=== PATIENT | female | born 1965 | race Caucasian/White ===

== ENCOUNTER → 2019-06-05 10:44 | Outpatient (BNVA) | payer MEDICARE, SELFPAY | PROVIDERS: Family Provider Family Medicine; PCP Family Medicine; Visit Provider Family Medicine | DX: B35.4 Tinea corporis (principal); E11.9 Type 2 diabetes mellitus without complications; Z79.4 Long term (current) use of insulin; K21.9 Gastro-esophageal reflux disease without esophagitis; R25.1 Tremor, unspecified; G56.02 Carpal tunnel syndrome, left upper limb; Z78.0 Asymptomatic menopausal state; R39.9 Unspecified symptoms and signs involving the genitourinary system; N39.0 Urinary tract infection, site not specified; Z12.31 Encounter for screening mammogram for malignant neoplasm of breast | CPT/HCPCS: 80053; 80061; 81003; 83036; 84443; 85025; 87077; 87086; 87186 ==

== ENCOUNTER 2019-06-19 09:35 | Emergency (ER) | payer MEDICARE, SELFPAY ==
[2019-06-19 09:36] VITALS: BP 173/127; PULSE 77; RESP 18; TEMP 36.5; O2SAT 96; BMI 47.5
--- NOTE | 2019-06-19 09:46 | W.ED.NAVMDI ---
HPI - Nausea/Vomiting/Diarrhea General: Chief complaint: Nausea/Vomiting/Diarrhea Stated complaint: N/V Time Seen by Provider: 06/19/19 09:43 Source: patient Mode of arrival: ambulatory Limitations: no limitations History of Present Illness: HPI Narrative: Patient comes in today with 3-day history of nausea vomiting and diarrhea with abdominal pain. Patient appears unwell. Patient appears in mild to no pain. Patient does have a history of diabetes, renal insufficiency, and depression. Associated nausea: Yes Associated symtoms: Reports nausea Review of Systems General: Reports: 10 or more systems reviewed and unremarkable except in HPI and below GI: Reports: abdominal pain, nausea, vomiting and diarrhea; Denies: vomiting blood or blood in stool PFSH ED PFSH: Social History Smoking and tobacco status: never smoked Alcohol intake: never Household members: spouse Housing: House Marital status: Number of children: 3 Highest education level completed: Associate Degree: Occupational, Technical, Vocational Program service: No Current occupational status: disabled History of recent travel: No Physical Exam Const: COMMON NORMALS: no apparent distress and oriented x3 GENERAL APPEARANCE: cooperative HENMT: COMMON NORMALS: normocephalic, external ears normal, EAC's normal, TM's normal bilaterally and external nose normal HEAD & SCALP: normal to inspection and normocephalic FACE & SINUS: normal facial exam NOSE: external nose normal GENERAL EAR: hearing not grossly impaired EXTERNAL EAR: Yes external ears normal EXTERNAL AUDITORY CANAL: EAC's normal TYMPANIC MEMBRANE: TM's normal bilaterally MOUTH: oral and palatal mucosa normal THROAT: posterior oropharynx normal Eye: COMMON NORMALS: PERRL and EOMs intact bilaterally PUPIL: Yes PERRL Neck/C-Spine: COMMON NORMALS: full ROM and no lymphadenopathy Lymph: LYMPHATIC: no lymphedema noted Chest: COMMONS NORMALS: inspection of chest normal and palpation of chest normal Resp: COMMON NORMALS: normal respiratory effort and clear to auscultation bilaterally AUSCULTATION: clear to auscultation bilaterally Cardio: COMMON NORMALS: regular rate and regular rhythm RATE: regular rate RHYTHM: regular rhythm GI: COMMON NORMALS: normal to inspection, nondistended, normoactive bowel sounds PALPATION: Yes tender : COMMON NORMALS: Yes no CVA tenderness BLADDER/KIDNEY EXAM: Yes no CVA tenderness Back/Pelvis: COMMON NORMALS: no CVA tenderness and thoracic and lumbar spine normal to inspection Extremity: COMMON NORMALS: normal to inspection GENERAL: No edema Neuro: COMMON NORMALS: oriented x3, moves all extremities and no focal motor deficits Psych: COMMON NORMALS: mental status grossly normal and cooperative Skin: COMMON NORMALS: no rashes or lesions noted GENERAL SKIN EXAM: no rashes or lesions noted Course Vital Signs: Vital signs: Vital Signs Temperature 97.7 F 06/19/19 09:36 Pulse Rate 74 06/19/19 11:13 Respiratory Rate 16 06/19/19 12:07 Blood Pressure 140/74 06/19/19 11:13 Pulse Oximetry 94 06/19/19 12:07 MDM - Nausea/Vomiting/Diarrhea MDM Narrative: Medical decision making narrative: Patient comes in today with complaints of Nausea vomiting diarrhea for 3 days. Exam notes abdomen soft nontender. Skin is warm and dry color is pink. Patient is alert and oriented. Differential diagnosis gastroenteritis, influenza, bowel obstruction, cholecystitis, pancreatitis, dehydration. Laboratory values were fairly normal except for some mild elevation in BUN at 21. Blood glucose was 183. CT scan of the abdomen and pelvis noted no significant abnormalities. Reviewed exam with patient with recommendations for treatment and follow-up. Patient reports understanding agreed to plan. Lab Data: Labs: Lab Results 06/19/19 06/19/19 06/19/19 Range/Units 10:05 10:05 10:42 WBC 9.3 (4.0-10.0) 10^3/ uL RBC 4.39 (4.1-5.3) 10^6/u L Hgb 12.0 (11.5-15.3) g/dL Hct 37.2 (37.0-47.0) % MCV 84.7 (81-99) fL MCH 27.3 L (28.0-34.0) pg MCHC 32.3 (30.0-36.0) g/dL RDW 12.7 (12.1-15.1) % Plt Count 213 (130-400) 10^3/c mm MPV 9.8 (7.4-10.4) fL Neut % (Auto) 82.1 % Lymph % (Auto) 12.5 % [place] % (Auto) 3.7 % Eos % (Auto) 0.6 % Baso % (Auto) 0.2 % Neut # (Auto) 7.6 (1.8-7.7) 10^3/u L Lymph # (Auto) 1.2 (0.8-4.8) 10^3/u L [place] # (Auto) 0.3 (0.2-0.9) 10^3/u L Eos # (Auto) 0.1 (0.0-0.8) 10^3/u L Baso # (Auto) 0.0 (0.0-0.1) 10^3/u L Nucleated RBC % (a uto) 0 % Nucleated RBCs # 0.0 /100WBC Sodium 136 (136-145) mmol/L Potassium 4.2 (3.5-5.1) mmol/L Chloride 100 (98-107) mmol/L Carbon Dioxide 23 (22-29) mmol/L Anion Gap 17.2 (5-19) BUN 21 H (6-20) mg/dL Creatinine 0.7 (0.5-0.9) mg/dL GFR Calculation 86.9 L (90-130) mL/min Glucose 181 H (65-115) mg/dL Calcium 9.8 (8.5-10.5) mg/dL Total Bilirubin 0.6 (0.15-1.2) mg/dL AST 16 (0-32) U/L ALT 15 (0-33) U/L Alkaline Phosphata se 83 (35-105) IU/L Total Protein 7.9 (6.6-8.7) g/dL Albumin 3.8 (3.5-5.2) g/dL Globulin 4.1 (1.3-4.6) g/dL Lipase 10 L (13-60) U/L Urine Color Straw (Yellow) Urine Appearance Clear (CLEAR) Urine pH 8.0 H (5-7) Ur Specific Gravit y 1.010 (1.005-1.030) Urine Protein Neg (Negative) Urine Glucose (UA) Norm (Normal) Urine Ketones 1+ H (Negative) Urine Blood Neg (Negative) Urine Nitrate Negative (Negative) Urine Bilirubin Neg (NEGATIVE) Prot Sulfosalicyli c Acd Negative Urine Urobilinogen Norm (Negative) mg/dL Ur Leukocyte Maricarmen ase Negative (Negative) Discharge Plan Discharge Patient Disposition: Home, Self-Care Clinical Impression: Gastroenteritis Condition: Stable Prescriptions: New promethazine 12.5 mg tablet 12.5 mg PO Q4H PRN (Reason: nausea and vomiting) Qty: 14 RF: 0 No Action clotrimazole-betamethasone [Lotrisone] 1-0.05 % cream 1 applic TOPICAL BID 28 Days Qty: 45 RF: 1 pantoprazole 40 mg tablet,delayed release (DR/EC) 40 mg PO DAILY Qty: 90 RF: 1 propranolol 10 mg tablet 10 mg PO BID Qty: 180 RF: 1 oxybutynin chloride 5 mg tablet 5 mg PO TID Qty: 270 RF: 1 sulfamethoxazole-trimethoprim [Bactrim DS] 800-160 mg tablet 1 tab PO BID Qty: 20 RF: 0 fluoxetine [Prozac] 40 mg capsule 40 mg PO QAM RF: 0 quetiapine [Seroquel] 50 mg tablet 50 mg PO .QHS RF: 0 ibuprofen 800 mg tablet 800 mg PO TID Qty: 30 RF: 0 (DME) True Metrix Glucose Test Strip Strip See Rx Instructions .ROUTE .MEDSUPPLY Qty: 100 RF: 3 baclofen 10 mg tablet 10 mg PO TID Qty: 90 RF: 0 Basaglar KwikPen U-100 Insulin 100 unit/mL (3 mL) insulin pen 70 unit SUBCUT DAILY Qty: 15 RF: 0 Discharge Orders: Discharge Order (Routine); Ordered 06/19/19 Ordered By: Scott Grullon Referrals: Magdalena Langston MD [Primary Care Provider] - Discharge Diet: Clear Liquid Discharge Activity: Increase activity as tolerated Patient Instructions: Gastroenteritis (ED) Activity Restrictions/Additional Instructions: Drink plenty of fluids Use Pedialyte or other electrolyte solution with water to maintain adequate hydration Follow-up with primary care in 3 days Return to ER for high fever or blood in stool or vomit, or new concerns Coding Level of Care Code 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
--- NOTE | 2019-06-19 09:54 | CTR_ITS ---
PROCEDURE INFORMATION: Exam: CT Abdomen And Pelvis With Contrast Exam date and time: 06/19/2019 10:02 AM Age: 53 years old Clinical indication: Nausea and vomiting; Abdominal pain; Generalized; Prior surgery; Surgery type: Gb; Patient HX: Mid abd pain with n/v/d. History of renal cancer. ; Additional info: Abd pain, n/v/d TECHNIQUE: Imaging protocol: Computed tomography of the abdomen and pelvis with intravenous contrast. Total DLP: 2061.71 mGy-cm Radiation optimization: All CT scans at this facility use at least one of these dose optimization techniques: automated exposure control; mA and/or kV adjustment per patient size (includes targeted exams where dose is matched to clinical indication); or iterative reconstruction. Contrast material: OMNI 300; Contrast volume: 95 ml; Contrast route: 20G; COMPARISON: CT abdomen pelvis wo con [id number] 10/05/2018 2:30 PM FINDINGS: Lungs: There are bibasilar calcified and noncalcified stable pulmonary granulomas. Liver: The liver is not enlarged. There is an ill-defined focus of diminished subcapsular attenuation in segment 3 adjacent to the fissure for the falciform ligament which can be due to focal fatty change or an area of anomalous perfusion. Gallbladder and bile ducts: Prior cholecystectomy. No biliary ductal dilatation allowing for that. Pancreas: No pancreatic mass. No peripancreatic inflammation. No pancreatic ductal dilation. Spleen: Multiple calcified granulomas in a nonenlarged spleen. Adrenals: There is a right adrenal mass measuring approximately 3.3 cm in size which has an ill-defined macroscopic fat attenuation component. This could be due to an adrenal adenoma or myelolipoma. The left adrenal gland is normal. Kidneys and ureters: No hydronephrosis. Punctate right renal calcification. Posterior right renal parenchymal scarring. Right renal simple appearing cysts measuring up to approximately 10 mm in size. Stomach and bowel: No bowel obstruction, colitis or diverticulitis. Appendix: No evidence of appendicitis. Intraperitoneal space: No ascites or pneumoperitoneum. Vasculature: No abdominal aortic aneurysm. No iliac or common femoral artery aneurysm. Lymph nodes: Scattered small mesenteric lymph nodes. Bladder: No urinary bladder calculus or wall thickening. Reproductive: Unremarkable as visualized. Bones/joints: There is disc degeneration with vacuum disc formation at L4-L5 and L5-S1. There is multilevel facet arthropathy in the lower lumbar spine. There is a grade 1 degenerative spondylolisthesis of L4 on L5. Multilevel bridging osteophytes present in the visualized thoracic spine. Soft tissues: There is a small umbilical hernia containing fat. CT/CT abdomen pelvis w con* [id number] IMPRESSION: No bowel obstruction, colitis or diverticulitis. COMMENTS: Consistent with the [employer]'s Incidental Findings Committee white paper (J Am Clarisa Radiol 2018): Any incidental cystic renal lesion classified in this report as too small to characterize or simple appearing is likely a benign cyst. No follow-up imaging is recommended for these lesions per consensus recommendations based on imaging criteria. Radiation Dose CTDIVOL = (mGy): DLP = 2061.71 (mGy-cm)
[2019-06-19 09:57] VITALS: PULSE 76; RESP 17; O2SAT 95
[2019-06-19 10:13] LABS: Basophils % 0.2 %; Eosinophils # 0.1 10^3/uL (0.0-0.8); Eosinophils % 0.6 %; Hematocrit 37.2 % (37.0-47.0); Lymphocytes # 1.2 10^3/uL (0.8-4.8); Lymphocytes % 12.5 %; Mean Corpuscular HGB Conc 32.3 g/dL (30.0-36.0); Mean Corpuscular Hemoglobin 27.3 pg (28.0-34.0); Mean Corpuscular Volume 84.7 fL (81-99); Mean Platelet Volume 9.8 fL (7.4-10.4); Monocytes # 0.3 10^3/uL (0.2-0.9); Monocytes % 3.7 %; Neutrophils # 7.6 10^3/uL (1.8-7.7); Neutrophils % 82.1 %; Nucleated Red Blood Cells % 0 %; Platelet Count 213 10^3/cmm (130-400); Red Blood Count 4.39 10^6/uL (4.1-5.3); Red Cell Distribution Width 12.7 % (12.1-15.1); White Blood Count 9.3 10^3/uL (4.0-10.0)
[2019-06-19] MEDS: iohexol 300 mg/mL 100 mL Btl IV (10:22)
[2019-06-19 10:27] LABS: Alanine Aminotransferase 15 U/L (0-33); Albumin Level 3.8 g/dL (3.5-5.2); Alkaline Phosphatase 83 IU/L (35-105); Anion Gap 17.2 (5-19); Aspartate Amino Transferase 16 U/L (0-32); Blood Urea Nitrogen 21 mg/dL (6-20); Calcium 9.8 mg/dL (8.5-10.5); Carbon Dioxide 23 mmol/L (22-29); Chloride 100 mmol/L (98-107); Globulin 4.1 g/dL (1.3-4.6); Glomerular Filtration Rate 86.9 mL/min (90-130); Glucose 181 mg/dL (65-115); Lipase 10 U/L (13-60); Potassium 4.2 mmol/L (3.5-5.1); Sodium 136 mmol/L (136-145); Total Bilirubin 0.6 mg/dL (0.15-1.2); Total Protein 7.9 g/dL (6.6-8.7)
[2019-06-19] MEDS: sodium chloride 0.9% 1,000 ML 999 ML IV (10:47)
[2019-06-19] MEDS: ondansetron 2 mg/ML SDV 2 mL 4 MG IVP ×2 (10:48→12:07)
[2019-06-19 10:53] LABS: Add Urine Microscopic? NO
[2019-06-19 11:10] LABS: Bilirubin Urine Neg (NEGATIVE); Blood Urine Neg (Negative); Glucose Urine UA Norm (Normal); Ketones Urine 1+ (Negative); Leukocyte Esterase Urine Negative (Negative); Nitrate Urine Negative (Negative); Protein Urine Neg (Negative); Sulfosalicylic Acid Urine Negative; Urine Appearance Clear (CLEAR); Urine Color Straw (Yellow); Urobilinogen Urine Norm (Negative)
[2019-06-19 11:13] VITALS: BP 140/74; PULSE 74; RESP 16; O2SAT 98
[2019-06-19 12:07] VITALS: RESP 16; O2SAT 94
[2019-06-19] MEDS: morphine 4 mg/mL SDV 1 mL 2 MG IVP (12:07)
[2019-06-19] MEDS: famotidine 20 mg/2 mL INJ 40 MG IVP (12:08)
[2019-06-19 12:31] LABS: Troponin(5th) Baseline 14 ng/mL (0-10)
[2019-06-19 12:40] VITALS: PULSE 78; RESP 16; O2SAT 94
--- NOTE | 2019-06-19 17:52 | ECG_ITS ---
Measurements Intervals [place] Rate: 71 P: 55 SC: 172 QRS: -20 QRSD: 153 T: -3 QT: 443 QTc: 482 SINUS RHYTHM RIGHT BUNDLE BRANCH BLOCK [120+ ms QRS DURATION, UPRIGHT V1, 40+ ms S IN I/aVL/V4/V5/V6] Compared to ECG 10/06/2018 06:09:45 No significant changes Electronically Signed On 06-20-2019 7:57:57 TREE TRIMMER by Nella Wood M.D. [email or web address]
== END 2019-06-19 12:41 | disposition home or self-care (01) ==
PROVIDERS: Emergency Provider Nurse Practitioner Family; Family Provider Family Medicine; PCP Family Medicine
DX: K52.9 Noninfective gastroenteritis and colitis, unspecified (principal); E11.9 Type 2 diabetes mellitus without complications
CPT/HCPCS: 36415; 74177; 80053; 81003; 83690; 84484; 85025; 93005; 96374; 96375; 96376; 99283; 99284; J2270; J2405; J3490; J7030; Q9967

== ENCOUNTER → 2019-07-09 15:01 | Outpatient (BNVA) | payer MEDICARE, SELFPAY | PROVIDERS: Family Provider Family Medicine; PCP Family Medicine; Visit Provider Family Medicine | DX: M77.32 Calcaneal spur, left foot (principal) | CPT/HCPCS: 73630 ==

== ENCOUNTER → 2019-07-16 08:26 | Outpatient (BNVA) | payer MEDICARE, SELFPAY | PROVIDERS: Family Provider Family Medicine; PCP Family Medicine; Visit Provider Nurse Practitioner Psychiatric/Mental Health | DX: F33.2 Major depressive disorder, recurrent severe without psychotic features (principal); F41.1 Generalized anxiety disorder | CPT/HCPCS: 99214 ==

== ENCOUNTER → 2019-09-24 07:58 | Outpatient (BNVA) | payer MEDICARE, SELFPAY | PROVIDERS: Family Provider Family Medicine; PCP Family Medicine; Visit Provider Anesthesiology | DX: G89.29 Other chronic pain (principal); M54.16 Radiculopathy, lumbar region; M54.9 Dorsalgia, unspecified; M79.672 Pain in left foot; Z79.891 Long term (current) use of opiate analgesic | CPT/HCPCS: 99213; 99214 ==

== ENCOUNTER 2019-09-28 16:03 | Outpatient (CLI) | payer MEDICARE, SELFPAY | END 2019-09-28 16:04 | disposition home or self-care (01) | LOC: SPT 16:03 | PROVIDERS: Family Provider Family Medicine; PCP Family Medicine; Visit Provider Podiatrist Foot & Ankle Surgery | DX: Z46.89 Encounter for fitting and adjustment of other specified devices (principal); M76.72 Peroneal tendinitis, left leg | CPT/HCPCS: 97760; L4361 ==

== ENCOUNTER → 2019-10-06 07:39 | Outpatient (BNVA) | payer MEDICARE, SELFPAY | PROVIDERS: Family Provider Family Medicine; PCP Family Medicine; Visit Provider Nurse Practitioner Psychiatric/Mental Health | DX: F33.2 Major depressive disorder, recurrent severe without psychotic features (principal); F41.1 Generalized anxiety disorder | CPT/HCPCS: 99214 ==

== ENCOUNTER 2019-10-12 16:17 | Outpatient (CLI) | payer MEDICARE, SELFPAY | END 2019-10-12 16:18 | disposition home or self-care (01) | LOC: SPT 16:18 | PROVIDERS: Family Provider Family Medicine; PCP Family Medicine; Visit Provider Podiatrist Foot & Ankle Surgery | DX: M76.72 Peroneal tendinitis, left leg (principal) | CPT/HCPCS: 97760; L1902 ==

== ENCOUNTER → 2019-10-13 10:29 | Outpatient (BNVA) | payer MEDICARE, SELFPAY | PROVIDERS: Family Provider Family Medicine; PCP Family Medicine; Visit Provider Family Medicine | DX: R32 Unspecified urinary incontinence (principal); E11.42 Type 2 diabetes mellitus with diabetic polyneuropathy; B37.9 Candidiasis, unspecified; R21 Rash and other nonspecific skin eruption; F41.1 Generalized anxiety disorder | CPT/HCPCS: 80053; 83036; 84443 ==

== ENCOUNTER → 2019-12-29 08:16 | Outpatient (BNVA) | payer MEDICARE, SELFPAY | PROVIDERS: Family Provider Family Medicine; PCP Family Medicine; Visit Provider Nurse Practitioner Psychiatric/Mental Health | DX: F33.2 Major depressive disorder, recurrent severe without psychotic features (principal); F41.1 Generalized anxiety disorder | CPT/HCPCS: 99213 ==

== ENCOUNTER → 2020-01-21 10:00 | Outpatient (BNVA) | payer MEDICARE, SELFPAY | PROVIDERS: Family Provider Family Medicine; PCP Family Medicine; Visit Provider Family Medicine | DX: E11.9 Type 2 diabetes mellitus without complications (principal); I10 Essential (primary) hypertension | CPT/HCPCS: 80053; 80061; 83036; 84443; 85025 ==

== ENCOUNTER → 2020-03-09 09:00 | Outpatient (BNVA) | payer MEDICARE, SELFPAY | PROVIDERS: Family Provider Family Medicine; PCP Family Medicine; Visit Provider Family Medicine | DX: N30.00 Acute cystitis without hematuria (principal); E66.9 Obesity, unspecified | CPT/HCPCS: 81003; 87077; 87086; 87184 ==

== ENCOUNTER → 2020-03-22 07:40 | Outpatient (BNVA) | payer MEDICARE, SELFPAY | PROVIDERS: Family Provider Family Medicine; PCP Family Medicine; Visit Provider Nurse Practitioner Psychiatric/Mental Health | DX: F33.2 Major depressive disorder, recurrent severe without psychotic features (principal); F41.1 Generalized anxiety disorder | CPT/HCPCS: 99213 ==

== ENCOUNTER → 2020-04-11 11:07 | Outpatient (BNVA) | payer MEDICARE, SELFPAY | PROVIDERS: Family Provider Family Medicine; PCP Family Medicine; Visit Provider Family Medicine | DX: N39.0 Urinary tract infection, site not specified (principal) | CPT/HCPCS: 81000 ==

== ENCOUNTER → 2020-05-31 09:02 | Outpatient (BNVA) | payer MEDICARE, SELFPAY | PROVIDERS: Family Provider Family Medicine; PCP Family Medicine; Visit Provider Internal Medicine | DX: E11.42 Type 2 diabetes mellitus with diabetic polyneuropathy (principal); E11.649 Type 2 diabetes mellitus with hypoglycemia without coma; Z79.4 Long term (current) use of insulin; Z79.891 Long term (current) use of opiate analgesic | CPT/HCPCS: 99205 ==

== ENCOUNTER → 2020-08-23 13:29 | Outpatient (BNVA) | payer MEDICARE, SELFPAY | PROVIDERS: Family Provider Family Medicine; PCP Family Medicine; Visit Provider Family Medicine | DX: E11.42 Type 2 diabetes mellitus with diabetic polyneuropathy (principal); K21.9 Gastro-esophageal reflux disease without esophagitis; E78.2 Mixed hyperlipidemia; I10 Essential (primary) hypertension; Z79.4 Long term (current) use of insulin; E66.9 Obesity, unspecified | CPT/HCPCS: 80053; 80061; 83036; 84443; 85025 ==

== ENCOUNTER → 2020-09-02 09:25 | Outpatient (BNVA) | payer MEDICARE, SELFPAY | PROVIDERS: Family Provider Family Medicine; PCP Family Medicine; Visit Provider Nurse Practitioner Psychiatric/Mental Health | DX: F33.2 Major depressive disorder, recurrent severe without psychotic features (principal); F41.1 Generalized anxiety disorder | CPT/HCPCS: 99214 ==

== ENCOUNTER → 2020-09-21 07:58 | Outpatient (BNVA) | payer MEDICARE, SELFPAY | PROVIDERS: Family Provider Family Medicine; PCP Family Medicine; Visit Provider Nurse Practitioner Psychiatric/Mental Health | DX: F33.2 Major depressive disorder, recurrent severe without psychotic features (principal); F41.1 Generalized anxiety disorder | CPT/HCPCS: 99214 ==

== ENCOUNTER → 2020-09-23 09:32 | Outpatient (BNVA) | payer MEDICARE, SELFPAY | PROVIDERS: Family Provider Family Medicine; PCP Family Medicine; Visit Provider Family Medicine | DX: N30.00 Acute cystitis without hematuria (principal); N39.0 Urinary tract infection, site not specified; R74.8 Abnormal levels of other serum enzymes | CPT/HCPCS: 80076; 81003; 87077; 87086; 87184 ==

== ENCOUNTER → 2020-10-10 07:50 | Outpatient (BNVA) | payer MEDICARE, SELFPAY | PROVIDERS: Family Provider Family Medicine; PCP Family Medicine; Visit Provider Nurse Practitioner Psychiatric/Mental Health | DX: F33.2 Major depressive disorder, recurrent severe without psychotic features (principal); F41.1 Generalized anxiety disorder | CPT/HCPCS: 99214 ==

== ENCOUNTER 2020-10-10 15:58 | Emergency (ER) | payer MEDICARE, SELFPAY ==
[2020-10-10 17:16] VITALS: BP 143/83; PULSE 65; RESP 18; TEMP 36.3; O2SAT 95; BMI 48.2
--- NOTE | 2020-10-10 17:40 | ED_ITS ---
Documented by User: Remigio Boles DO 10/11/20 06:45 HPI - Psych General: Chief Complaint: Urogenital-Female Stated Complaint: POSS UTI & DEHYDRATION Time Seen by Provider: 10/10/20 17:14 History of Present Illness: HPI Narrative: 55-year-old female presents to the emergency room [facility] evidently called ahead of time monitor his notes and nurses triage that she was hallucinating however she denies it in talking to her and her and think the bigger issue is they thought the medicine she was taking could cause hallucinations she denies any suicidal or homicidal ideation. She not had any fever sweats or chills she recently was started on antibiotic for UTI but did not come needed. Onset (ago): minute(s) Relieving factors: none Exacerbating factors: none Associated symptoms: Deny auditory hallucinations, visual hallucinations, delusions, depression, homicidal ideation, suicidal ideation or racing thoughts Review of Systems Const: Denies: fever(s), chills, body aches, change in appetite, fatigue or malaise ENMT: Denies: throat pain, ear or mastoid pain, nasal discharge or nasal congestion Card: Denies: chest pain, edema, dyspnea on exertion or orthopnea Resp: Denies: dyspnea, productive cough or non-productive cough GI: Reports: nausea; Denies: abdominal pain, vomiting, hematemesis, coffee ground emesis, diarrhea, constipation, bloating, hematochezia or melena : Denies: flank pain, difficulty voiding, dysuria, urinary frequency or urinary urgency Skin/Breast: Denies: rash or pruritus Psych: Denies: depression, visual hallucinations, auditory hallucinations, suicidal ideation or homicidal ideation [facility] ED PFSH: Medical History Anemia Chronic radicular lumbar pain Diabetes Encounter for long-term opiate analgesic use Generalized anxiety disorder Major depressive disorder, recurrent severe without psychotic features Primary fibromyalgia Type 2 diabetes mellitus, with long-term current use of insulin Surgical History Hx of adenoidectomy Hx of carpal tunnel repair (~1996) Hx of cholecystectomy (~1986) Hx of colonoscopy (~2019) Hx of endoscopy (~2019) Family History Mother Hypertension Rheumatoid arthritis Grandmother Diabetes Arthritis Stroke Hypertension Social History Smoking and tobacco status: never smoked Alcohol intake: never Household members: spouse Marital status: Current occupational status: disabled History of recent travel: No Physical Exam Const: COMMON NORMALS: no acute distress GENERAL APPEARANCE: cooperative and comfortable ORIENTATION/CONSCIOUSNESS: Yes awake, Yes oriented to person, Yes oriented to place and Yes oriented to time HENMT: COMMON NORMALS: normocephalic, atraumatic, hearing grossly normal bilaterally, external ears normal, EAC's normal and TM's normal bilaterally HEAD & SCALP: normocephalic and atraumatic EXTERNAL EAR: Yes external ears normal EXTERNAL AUDITORY CANAL: EAC's normal TYMPANIC MEMBRANE: TM's normal bilaterally Neck/C-Spine: COMMON NORMALS: no JVD Resp: COMMON NORMALS: normal respiratory effort, No retractions, No use of accessory muscles and clear to auscultation bilaterally AUSCULTATION: clear to auscultation bilaterally Cardio: COMMON NORMALS: no JVD, regular rate, regular rhythm and No murmurs present (Cardio) RATE: regular rate RHYTHM: regular rhythm GI: COMMON NORMALS: Soft to palpation and No hepatosplenomegaly present AUSCULTATION: Yes normoactive bowel sounds PALPATION: Yes Soft to palpation, No Tenderness to palpation present (GI), No Guarding due to palpation present (GI) and Yes No hepatosplenomegaly present Extremity: COMMON NORMALS: normal to inspection, capillary refill normal, no clubbing, cyanosis or edema, no calf tenderness and no pedal edema Neuro: SENSORIUM/ORIENTATION: Yes oriented to person, Yes oriented to place and Yes oriented to time Psych: THOUGHT CONTENT: No delusions Skin: COMMON NORMALS: no rashes or lesions noted GENERAL SKIN EXAM: no rashes or lesions noted Course Vital Signs: Vital signs: Vital Signs Temperature 97.3 F L 10/10/20 17:16 Pulse Rate 72 10/10/20 19:31 Respiratory Rate 18 10/10/20 19:31 Blood Pressure 121/66 10/10/20 19:31 Pulse Oximetry 97 10/10/20 19:31 MDM - Psych MDM Narrative: Medical decision making narrative: Patient initially seen by myself. Orders written discussed with Dr. Guerra care turned over Dr. Guerra at change of shift see his notes for final diagnosis and disposition. Lab Data: Labs: Lab Results 10/10/20 10/10/20 10/10/20 Range/Units 17:42 17:52 17:52 WBC 7.8 (4.0-10.0) 10^3/ uL RBC 3.98 L (4.1-5.3) 10^6/u L Hgb 11.8 (11.5-15.3) g/dL Hct 36.0 L (37.0-47.0) % MCV 90.5 (81-99) fL MCH 29.6 (28.0-34.0) pg MCHC 32.8 (30.0-36.0) g/dL RDW 12.8 (12.1-15.1) % Plt Count 174 (130-400) 10^3/c mm MPV 10.1 (7.4-10.4) fL Neut % (Auto) 67.7 % Lymph % (Auto) 23.4 % [place] % (Auto) 6.1 % Eos % (Auto) 1.8 % Baso % (Auto) 0.5 % Neut # (Auto) 5.30 (1.8-7.7) 10^3/u L Lymph # (Auto) 1.8 (0.8-4.8) 10^3/u L [place] # (Auto) 0.5 (0.2-0.9) 10^3/u L Eos # (Auto) 0.1 (0.0-0.8) 10^3/u L Baso # (Auto) 0.0 (0.0-0.1) 10^3/u L Nucleated RBC % (a uto) 0 % Nucleated RBCs # 0.0 /100WBC Sodium Cancelled Potassium Cancelled Chloride Cancelled Carbon Dioxide Cancelled Anion Gap Cancelled BUN Cancelled Creatinine Cancelled GFR Calculation Cancelled Glucose Cancelled Calculated Osmolal ity Cancelled Calcium Cancelled Total Bilirubin Cancelled AST Cancelled ALT Cancelled Alkaline Phosphata se Cancelled Total Protein Cancelled Albumin Cancelled Globulin Cancelled Urine Color Yellow (Yellow) Urine Appearance Clear (CLEAR) Urine pH 8 H (5-7) Ur Specific Gravit y 1.010 (1.005-1.030) Urine Protein Neg (Negative) Urine Glucose (UA) Norm (Normal) Urine Ketones Negative (Negative) Urine Blood Neg (Negative) Urine Nitrate Negative (Negative) Urine Bilirubin Neg (Negative) Prot Sulfosalicyli c Acd Negative (Negative) Urine Urobilinogen 4 H (Negative) mg/dL Ur Leukocyte Maricarmen ase Negative (Negative) Salicylates Cancelled Acetaminophen Cancelled 10/10/20 Range/Units 18:36 WBC (4.0-10.0) 10^3/ uL RBC (4.1-5.3) 10^6/u L Hgb (11.5-15.3) g/dL Hct (37.0-47.0) % MCV (81-99) fL MCH (28.0-34.0) pg MCHC (30.0-36.0) g/dL RDW (12.1-15.1) % Plt Count (130-400) 10^3/c mm MPV (7.4-10.4) fL Neut % (Auto) % Lymph % (Auto) % [place] % (Auto) % Eos % (Auto) % Baso % (Auto) % Neut # (Auto) (1.8-7.7) 10^3/u L Lymph # (Auto) (0.8-4.8) 10^3/u L [place] # (Auto) (0.2-0.9) 10^3/u L Eos # (Auto) (0.0-0.8) 10^3/u L Baso # (Auto) (0.0-0.1) 10^3/u L Nucleated RBC % (a uto) % Nucleated RBCs # /100WBC Sodium 138 Potassium 4.1 Chloride 105 Carbon Dioxide 27 Anion Gap 10.1 BUN 12 Creatinine 0.6 GFR Calculation 103.0 Glucose 138 H Calculated Osmolal ity 288 Calcium 8.2 L Total Bilirubin 0.8 AST 95 H ALT 104 H Alkaline Phosphata se 139 H Total Protein 5.8 L Albumin 3.2 L Globulin 2.6 Urine Color (Yellow) Urine Appearance (CLEAR) Urine pH (5-7) Ur Specific Gravit y (1.005-1.030) Urine Protein (Negative) Urine Glucose (UA) (Normal) Urine Ketones (Negative) Urine Blood (Negative) Urine Nitrate (Negative) Urine Bilirubin (Negative) Prot Sulfosalicyli c Acd (Negative) Urine Urobilinogen (Negative) mg/dL Ur Leukocyte Maricarmen ase (Negative) Salicylates < 0.3 L Acetaminophen < 5.0 L Discharge Plan Discharge Patient Disposition: Home Clinical Impression: Dysuria, Nausea Condition: Stable Prescriptions: New promethazine 25 mg tablet 25 mg PO Q6H PRN (Reason: nausea and vomiting) Qty: 20 RF: 0 No Action metoclopramide HCl [Reglan] 10 mg tablet 10 mg PO Q6H PRN (Reason: nausea and vomiting) Qty: 30 RF: 3 calcium carbonate 600 mg calcium (1,500 mg) tablet 600 mg PO BID RF: 0 fluoxetine 40 mg capsule 40 mg PO QAM Qty: 30 RF: 1 aspirin 325 mg tablet,delayed release (DR/EC) 162.5 mg PO DAILY RF: 0 magnesium oxide 500 mg capsule 500 mg PO BID RF: 0 multivitamin Tablet 1 tab PO QAM RF: 0 ascorbate calcium (vitamin C) 500 mg tablet 500 mg PO DAILY RF: 0 ferrous sulfate [FeroSul] 325 mg (65 mg iron) tablet 650 mg PO BID RF: 0 potassium gluconate 595 mg (99 mg) tablet 99 mg PO DAILY RF: 0 (DME) Diabetic shoes with inserts See Rx Instructions .Route .MEDSUPPLY Qty: 1 RF: 0 (DME) blood sugar diagnostic Strip See Rx Instructions .ROUTE .MEDSUPPLY Qty: 10 RF: 0 cholecalciferol (vitamin D3) 25 mcg (1,000 unit) capsule 25 mcg PO DAILY RF: 0 coenzyme Q10 [Co Q-10] 200 mg capsule 200 mg PO DAILY RF: 0 vitamin B complex [Super B-50 Complex] Capsule 1 cap PO DAILY RF: 0 oxybutynin chloride 5 mg tablet 5 mg PO QID Qty: 360 RF: 1 atorvastatin 10 mg tablet See Rx Instructions .ROUTE .COMPLEX Qty: 90 RF: 2 Vascepa 1 gram capsule 2 g PO BID Qty: 360 RF: 1 Basaglar KwikPen U-100 Insulin 100 unit/mL (3 mL) insulin pen 70 unit SUBCUT DAILY Qty: 15 RF: 4 lisinopril 5 mg tablet 5 mg PO DAILY Qty: 90 RF: 3 pantoprazole 40 mg tablet,delayed release (DR/EC) 40 mg PO DAILY Qty: 90 RF: 1 pregabalin [Lyrica] 200 mg capsule 200 mg PO TID Qty: 90 RF: 0 zonisamide 100 mg capsule See Rx Instructions .ROUTE .COMPLEX Qty: 90 RF: 2 phentermine 15 mg capsule 15 mg PO BID Qty: 60 RF: 0 propranolol 40 mg tablet 40 mg PO BID Qty: 60 RF: 3 risperidone [Risperdal] 0.5 mg tablet 0.5 mg PO .bedtime Qty: 30 RF: 1 sulfamethoxazole-trimethoprim [Bactrim DS] 800-160 mg tablet 1 tab PO BID 10 Days Qty: 20 RF: 0 phenazopyridine [Pyridium] 100 mg tablet 100 mg PO Q8H Qty: 20 RF: 0 nystatin 100,000 unit/gram powder 1 applic TOPICAL DAILY PRN (Reason: rash) Qty: 60 RF: 0 niacin 500 mg tablet extended release 1,000 mg PO TID Qty: 540 RF: 1 ibuprofen 800 mg tablet See Rx Instructions .ROUTE .COMPLEX Qty: 90 RF: 2 (DME) FreeStyle [place] 2 Sensor Kit See Rx Instructions .ROUTE .MEDSUPPLY Qty: 2 RF: 3 (DME) FreeStyle [place] 2 [place] Misc See Rx Instructions .ROUTE .MEDSUPPLY Qty: 1 RF: 0 insulin aspart U-100 [Novolog Flexpen U-100 Insulin] 100 unit/mL (3 mL) insulin pen See Rx Instructions .ROUTE .COMPLEX Qty: 30 RF: 4 insulin syringe-needle U-100 [BD Insulin Syringe Ultra-Fine] 0.5 mL 31 gauge x 5/16 syringe See Rx Instructions .ROUTE .COMPLEX Qty: 100 RF: 2 True Metrix Glucose Test Strip Strip See Rx Instructions .ROUTE .COMPLEX Qty: 100 RF: 2 ondansetron HCl [Zofran] 4 mg tablet 8 mg PO Q8H Qty: 20 RF: 0 baclofen 10 mg tablet See Rx Instructions .ROUTE .COMPLEX Qty: 90 RF: 0 Discharge Orders: Discharge ED (Routine); Ordered 10/10/20 Ordered By: Coco Guerra Referrals: Mora Snyder MD [Primary Care Provider] - 1-3 days Discharge Diet: Advance as tolerated Discharge Activity: Resume usual activity Patient Instructions: Abdominal Pain (ED) Coding Level of Care Code ED Plant Senior Manager for Chg Fwd Exam Comprehensive Documented by User: Coco Guerra MD 10/10/20 19:34 HPI - Psych General: Chief Complaint: Urogenital-Female Stated Complaint: POSS UTI & DEHYDRATION Time Seen by Provider: 10/10/20 17:14 PFSH ED PFSH: Medical History Anemia Chronic radicular lumbar pain Diabetes Encounter for long-term opiate analgesic use Generalized anxiety disorder Major depressive disorder, recurrent severe without psychotic features Primary fibromyalgia Type 2 diabetes mellitus, with long-term current use of insulin Surgical History Hx of adenoidectomy Hx of carpal tunnel repair (~1996) Hx of cholecystectomy (~1986) Hx of colonoscopy (~2019) Hx of endoscopy (~2019) Family History Mother Hypertension Rheumatoid arthritis Grandmother Diabetes Arthritis Stroke Hypertension Social History Smoking and tobacco status: never smoked Alcohol intake: never Household members: spouse Marital status: Current occupational status: disabled History of recent travel: No Course Vital Signs: Vital signs: Vital Signs Temperature 97.3 F L 10/10/20 17:16 Pulse Rate 72 10/10/20 19:31 Respiratory Rate 18 10/10/20 19:31 Blood Pressure 121/66 10/10/20 19:31 Pulse Oximetry 97 10/10/20 19:31 MDM - Psych MDM Narrative: Medical decision making narrative: Patient presents here with recent urinary tract infection with some nausea. She did take most of her Bactrim and her urinalysis here is normal with no signs of infection. Her abdominal exam here is benign. She does have some nausea and requested Phenergan we will place her on Phenergan at home. Blood work here is all normal. She is stable for discharge is to follow-up with PCP and return if worsening. Lab Data: Labs: Lab Results 10/10/20 10/10/20 10/10/20 Range/Units 17:42 17:52 17:52 WBC 7.8 (4.0-10.0) 10^3/ uL RBC 3.98 L (4.1-5.3) 10^6/u L Hgb 11.8 (11.5-15.3) g/dL Hct 36.0 L (37.0-47.0) % MCV 90.5 (81-99) fL MCH 29.6 (28.0-34.0) pg MCHC 32.8 (30.0-36.0) g/dL RDW 12.8 (12.1-15.1) % Plt Count 174 (130-400) 10^3/c mm MPV 10.1 (7.4-10.4) fL Neut % (Auto) 67.7 % Lymph % (Auto) 23.4 % [place] % (Auto) 6.1 % Eos % (Auto) 1.8 % Baso % (Auto) 0.5 % Neut # (Auto) 5.30 (1.8-7.7) 10^3/u L Lymph # (Auto) 1.8 (0.8-4.8) 10^3/u L [place] # (Auto) 0.5 (0.2-0.9) 10^3/u L Eos # (Auto) 0.1 (0.0-0.8) 10^3/u L Baso # (Auto) 0.0 (0.0-0.1) 10^3/u L Nucleated RBC % (a uto) 0 % Nucleated RBCs # 0.0 /100WBC Sodium Cancelled Potassium Cancelled Chloride Cancelled Carbon Dioxide Cancelled Anion Gap Cancelled BUN Cancelled Creatinine Cancelled GFR Calculation Cancelled Glucose Cancelled Calculated Osmolal ity Cancelled Calcium Cancelled Total Bilirubin Cancelled AST Cancelled ALT Cancelled Alkaline Phosphata se Cancelled Total Protein Cancelled Albumin Cancelled Globulin Cancelled Urine Color Yellow (Yellow) Urine Appearance Clear (CLEAR) Urine pH 8 H (5-7) Ur Specific Gravit y 1.010 (1.005-1.030) Urine Protein Neg (Negative) Urine Glucose (UA) Norm (Normal) Urine Ketones Negative (Negative) Urine Blood Neg (Negative) Urine Nitrate Negative (Negative) Urine Bilirubin Neg (Negative) Prot Sulfosalicyli c Acd Negative (Negative) Urine Urobilinogen 4 H (Negative) mg/dL Ur Leukocyte Maricarmen ase Negative (Negative) Salicylates Cancelled Acetaminophen Cancelled 10/10/20 Range/Units 18:36 WBC (4.0-10.0) 10^3/ uL RBC (4.1-5.3) 10^6/u L Hgb (11.5-15.3) g/dL Hct (37.0-47.0) % MCV (81-99) fL MCH (28.0-34.0) pg MCHC (30.0-36.0) g/dL RDW (12.1-15.1) % Plt Count (130-400) 10^3/c mm MPV (7.4-10.4) fL Neut % (Auto) % Lymph % (Auto) % [place] % (Auto) % Eos % (Auto) % Baso % (Auto) % Neut # (Auto) (1.8-7.7) 10^3/u L Lymph # (Auto) (0.8-4.8) 10^3/u L [place] # (Auto) (0.2-0.9) 10^3/u L Eos # (Auto) (0.0-0.8) 10^3/u L Baso # (Auto) (0.0-0.1) 10^3/u L Nucleated RBC % (a uto) % Nucleated RBCs # /100WBC Sodium 138 Potassium 4.1 Chloride 105 Carbon Dioxide 27 Anion Gap 10.1 BUN 12 Creatinine 0.6 GFR Calculation 103.0 Glucose 138 H Calculated Osmolal ity 288 Calcium 8.2 L Total Bilirubin 0.8 AST 95 H ALT 104 H Alkaline Phosphata se 139 H Total Protein 5.8 L Albumin 3.2 L Globulin 2.6 Urine Color (Yellow) Urine Appearance (CLEAR) Urine pH (5-7) Ur Specific Gravit y (1.005-1.030) Urine Protein (Negative) Urine Glucose (UA) (Normal) Urine Ketones (Negative) Urine Blood (Negative) Urine Nitrate (Negative) Urine Bilirubin (Negative) Prot Sulfosalicyli c Acd (Negative) Urine Urobilinogen (Negative) mg/dL Ur Leukocyte Maricarmen ase (Negative) Salicylates < 0.3 L Acetaminophen < 5.0 L Discharge Plan Discharge Patient Disposition: Home Clinical Impression: Dysuria, Nausea Condition: Stable Prescriptions: New promethazine 25 mg tablet 25 mg PO Q6H PRN (Reason: nausea and vomiting) Qty: 20 RF: 0 No Action metoclopramide HCl [Reglan] 10 mg tablet 10 mg PO Q6H PRN (Reason: nausea and vomiting) Qty: 30 RF: 3 calcium carbonate 600 mg calcium (1,500 mg) tablet 600 mg PO BID RF: 0 fluoxetine 40 mg capsule 40 mg PO QAM Qty: 30 RF: 1 aspirin 325 mg tablet,delayed release (DR/EC) 162.5 mg PO DAILY RF: 0 magnesium oxide 500 mg capsule 500 mg PO BID RF: 0 multivitamin Tablet 1 tab PO QAM RF: 0 ascorbate calcium (vitamin C) 500 mg tablet 500 mg PO DAILY RF: 0 ferrous sulfate [FeroSul] 325 mg (65 mg iron) tablet 650 mg PO BID RF: 0 potassium gluconate 595 mg (99 mg) tablet 99 mg PO DAILY RF: 0 (DME) Diabetic shoes with inserts See Rx Instructions .Route .MEDSUPPLY Qty: 1 RF: 0 (DME) blood sugar diagnostic Strip See Rx Instructions .ROUTE .MEDSUPPLY Qty: 10 RF: 0 cholecalciferol (vitamin D3) 25 mcg (1,000 unit) capsule 25 mcg PO DAILY RF: 0 coenzyme Q10 [Co Q-10] 200 mg capsule 200 mg PO DAILY RF: 0 vitamin B complex [Super B-50 Complex] Capsule 1 cap PO DAILY RF: 0 oxybutynin chloride 5 mg tablet 5 mg PO QID Qty: 360 RF: 1 atorvastatin 10 mg tablet See Rx Instructions .ROUTE .COMPLEX Qty: 90 RF: 2 Vascepa 1 gram capsule 2 g PO BID Qty: 360 RF: 1 Basaglar KwikPen U-100 Insulin 100 unit/mL (3 mL) insulin pen 70 unit SUBCUT DAILY Qty: 15 RF: 4 lisinopril 5 mg tablet 5 mg PO DAILY Qty: 90 RF: 3 pantoprazole 40 mg tablet,delayed release (DR/EC) 40 mg PO DAILY Qty: 90 RF: 1 pregabalin [Lyrica] 200 mg capsule 200 mg PO TID Qty: 90 RF: 0 zonisamide 100 mg capsule See Rx Instructions .ROUTE .COMPLEX Qty: 90 RF: 2 phentermine 15 mg capsule 15 mg PO BID Qty: 60 RF: 0 propranolol 40 mg tablet 40 mg PO BID Qty: 60 RF: 3 risperidone [Risperdal] 0.5 mg tablet 0.5 mg PO .bedtime Qty: 30 RF: 1 sulfamethoxazole-trimethoprim [Bactrim DS] 800-160 mg tablet 1 tab PO BID 10 Days Qty: 20 RF: 0 phenazopyridine [Pyridium] 100 mg tablet 100 mg PO Q8H Qty: 20 RF: 0 nystatin 100,000 unit/gram powder 1 applic TOPICAL DAILY PRN (Reason: rash) Qty: 60 RF: 0 niacin 500 mg tablet extended release 1,000 mg PO TID Qty: 540 RF: 1 ibuprofen 800 mg tablet See Rx Instructions .ROUTE .COMPLEX Qty: 90 RF: 2 (DME) FreeStyle [place] 2 Sensor Kit See Rx Instructions .ROUTE .MEDSUPPLY Qty: 2 RF: 3 (DME) FreeStyle [place] 2 [place] Misc See Rx Instructions .ROUTE .MEDSUPPLY Qty: 1 RF: 0 insulin aspart U-100 [Novolog Flexpen U-100 Insulin] 100 unit/mL (3 mL) ins ulin pen See Rx Instructions .ROUTE .COMPLEX Qty: 30 RF: 4 insulin syringe-needle U-100 [BD Insulin Syringe Ultra-Fine] 0.5 mL 31 gauge x 5/16 syringe See Rx Instructions .ROUTE .COMPLEX Qty: 100 RF: 2 True Metrix Glucose Test Strip Strip See Rx Instructions .ROUTE .COMPLEX Qty: 100 RF: 2 ondansetron HCl [Zofran] 4 mg tablet 8 mg PO Q8H Qty: 20 RF: 0 baclofen 10 mg tablet See Rx Instructions .ROUTE .COMPLEX Qty: 90 RF: 0 Discharge Orders: Discharge ED (Routine); Ordered 10/10/20 Ordered By: Coco Guerra Referrals: Mora Snyder MD [Primary Care Provider] - 1-3 days Discharge Diet: Advance as tolerated Discharge Activity: Resume usual activity Patient Instructions: Abdominal Pain (ED) Coding Level of Care Code ED Plant Senior Manager for Chg Fwd Exam Comprehensive
[2020-10-10 18:02] LABS: Basophils % 0.5 %; Eosinophils # 0.1 10^3/uL (0.0-0.8); Eosinophils % 1.8 %; Hemoglobin 11.8 g/dL (11.5-15.3); Lymphocytes # 1.8 10^3/uL (0.8-4.8); Lymphocytes % 23.4 %; Mean Corpuscular HGB Conc 32.8 g/dL (30.0-36.0); Mean Corpuscular Hemoglobin 29.6 pg (28.0-34.0); Mean Corpuscular Volume 90.5 fL (81-99); Mean Platelet Volume 10.1 fL (7.4-10.4); Monocytes # 0.5 10^3/uL (0.2-0.9); Monocytes % 6.1 %; Neutrophils % 67.7 %; Nucleated Red Blood Cells % 0 %; Platelet Count 174 10^3/cmm (130-400); Red Blood Count 3.98 10^6/uL (4.1-5.3); Red Cell Distribution Width 12.8 % (12.1-15.1); White Blood Count 7.8 10^3/uL (4.0-10.0)
[2020-10-10 18:45] LABS: Add Urine Microscopic? NO; Charge for UA Resulting for Rev
[2020-10-10 18:50] LABS: Bilirubin Urine Neg (Negative); Blood Urine Neg (Negative); Glucose Urine UA Norm (Normal); Ketones Urine Negative (Negative); Leukocyte Esterase Urine Negative (Negative); Nitrate Urine Negative (Negative); Protein Urine Neg (Negative); Sulfosalicylic Acid Urine Negative (Negative); Urine Appearance Clear (CLEAR); Urine Color Yellow (Yellow); Urobilinogen Urine 4 mg/dL (Negative); pH Urine 8 (5-7)
[2020-10-10 19:10] LABS: Alanine Aminotransferase 104 U/L (0-33); Albumin Level 3.2 g/dL (3.5-5.2); Alkaline Phosphatase 139 IU/L (35-105); Anion Gap 10.1 (5-19); Aspartate Amino Transferase 95 U/L (0-32); Blood Urea Nitrogen 12 mg/dL (6-20); Calcium 8.2 mg/dL (8.5-10.5); Carbon Dioxide 27 mmol/L (22-29); Chloride 105 mmol/L (98-107); Globulin 2.6 g/dL (1.3-4.6); Glucose 138 mg/dL (65-115); Osmolality Calculated 288 mOsm/kg (285-295); Potassium 4.1 mmol/L (3.5-5.1); Sodium 138 mmol/L (136-145); Total Bilirubin 0.8 mg/dL (0.15-1.2); Total Protein 5.8 g/dL (6.6-8.7)
[2020-10-10 19:13] LABS: Acetaminophen < 5.0 ug/mL (10-30); Salicylate < 0.3 mg/dL (3-10)
[2020-10-10 19:31] VITALS: BP 121/66; PULSE 72; RESP 18; O2SAT 97
== END 2020-10-10 19:31 | disposition home or self-care (01) ==
PROVIDERS: Family Medicine; Physician Assistant; Emergency Provider Emergency Medicine; PCP Family Medicine
DX: R30.0 Dysuria (principal); R11.0 Nausea; Z79.82 Long term (current) use of aspirin; Z79.4 Long term (current) use of insulin; E11.9 Type 2 diabetes mellitus without complications
CPT/HCPCS: 36415; 80053; 80307; 81003; 85025; 99282

== ENCOUNTER → 2020-10-14 10:11 | Outpatient (BNVA) | payer MEDICARE, SELFPAY | PROVIDERS: PCP Family Medicine; Visit Provider Nurse Practitioner Family | DX: R11.2 Nausea with vomiting, unspecified (principal); R42 Dizziness and giddiness; K21.9 Gastro-esophageal reflux disease without esophagitis | CPT/HCPCS: 80053; 81000; 85025 ==

== ENCOUNTER → 2020-10-20 08:15 | Outpatient (BNVA) | payer MEDICARE, SELFPAY | PROVIDERS: PCP Family Medicine; Visit Provider Nurse Practitioner Family | DX: R11.2 Nausea with vomiting, unspecified (principal); K21.9 Gastro-esophageal reflux disease without esophagitis | CPT/HCPCS: 87338 ==

== ENCOUNTER 2020-10-27 06:00 | Outpatient (RCR) | payer MEDICARE, SELFPAY | END 2020-11-19 23:59 | disposition home or self-care (01) | LOC: SPT 06:00 | PROVIDERS: PCP Family Medicine; Referring Provider Nurse Practitioner Family; Visit Provider Nurse Practitioner Family | DX: R42 Dizziness and giddiness (principal) | CPT/HCPCS: 97162 ==

== ENCOUNTER → 2020-11-25 11:59 | Outpatient (BNVA) | payer MEDICARE, SELFPAY | PROVIDERS: PCP Family Medicine; Visit Provider Family Medicine | DX: R74.8 Abnormal levels of other serum enzymes (principal) | CPT/HCPCS: 80076; 86705; 86706; 86709; 86803; 87340 ==

== ENCOUNTER 2020-12-01 04:43 | Emergency (ER) | payer MEDICARE, SELFPAY ==
[2020-12-01 04:48] VITALS: BP 119/71; PULSE 60; RESP 14; TEMP 36.6; O2SAT 93; BMI 43.2
--- NOTE | 2020-12-01 04:51 | ECG_ITS ---
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
[2020-12-01 04:55] VITALS: PULSE 59; RESP 13; O2SAT 96
[2020-12-01 05:42] LABS: Glucose Point of Care 73 mg/dL (70-110)
--- NOTE | 2020-12-01 05:46 | W.ED.GENADLT ---
Documented by User: Josué White MD 12/02/20 08:12 HPI - General Adult General: Chief complaint: Overdose Stated complaint: OVERDOSE Time Seen by Provider: 12/01/20 04:51 History of Present Illness: HPI narrative: CC: AMS, hypoglycemia HPI: [55]yo patient w/ hx of DM2 on humalog/lantus, chronic TMJ pain BIBA for altered mental status after patient was found obtunded at home by . Patient had glucose of 35 at home. EMS was alerted and patient was given 250cc of D10 with improvement of glucose to >150. However, patient to be mildly somnolent. Per , patient was complaining of rib pain yesterday night and took 2 tablets of morphine 15 mg. EMS gave patient 2 mg of inhaled Narcan with mild improvement in mentation. On arrival, patient is somnolent, but occasionally arousable. Unable to obtain history. Onset: Unknown Duration: ongoing, unclear duration Location: home Severity: severe Review of Systems Narrative: REVIEW OF SYSTEMS unable to obtain due to current cognitive status PFSH ED PFSH: Medical History Anemia Chronic radicular lumbar pain Diabetes Encounter for long-term opiate analgesic use Generalized anxiety disorder Major depressive disorder, recurrent severe without psychotic features Primary fibromyalgia Type 2 diabetes mellitus, with long-term current use of insulin Surgical History Hx of adenoidectomy Hx of carpal tunnel repair (~1996) Hx of cholecystectomy (~1986) Hx of colonoscopy (~2019) Hx of endoscopy (~2019) Family History Mother Hypertension Rheumatoid arthritis Grandmother Diabetes Arthritis Stroke Hypertension Social History Second hand smoke exposure: No Alcohol intake: never Caregiver/support person: Yes Lives independently: Yes Household members: spouse Marital status: Current occupational status: disabled History of recent travel: No Current gender identity: Female Special sixto needs: No Physical Exam Narrative: EXAM NARRATIVE: Head: Atraumatic Eyes: PERRL, conjunctiva without injection, pupils midsized ENT: Mucous membrane moist NECK: Supple without lymphadenopathy LUNGS: LCTAB CV: RRR ABDOMEN: Soft, nontender in all quadrants EXTREMITY: Normal ROM SKIN: No rash or erythema, no signs of track xavier, no visible patches, no noticeable cellulitis NEURO: Somnolent but arousable, moving all extremities, GCS of 13 PSYCH: Somnolent unable to fully assess at this time Course Vital Signs: Vital signs: Vital Signs Temperature 97.9 F 12/01/20 04:48 Pulse Rate 64 12/01/20 06:39 Respiratory Rate 15 12/01/20 06:39 Blood Pressure 101/58 12/01/20 06:39 Pulse Oximetry 95 12/01/20 06:39 MDM - General Adult MDM Narrative: Medical decision making narrative: 55-year-old female history of type 2 diabetes on Humalog/Lantus brought in to the emergency room for evaluation of hypoglycemia and altered mental status. Patient had a glucose of 35 at home per . Patient received 250 cc of D10 in route. Glucose for rescue was greater than 150. However on arrival, patient had a glucose of 78. Continues is to be somnolent, was started on a D10 drip at 150 cc. is at bedside today. denies the use of any Sulfonyurea. Case signed Dr. Boles. Lab Data: Labs: Lab Results 12/01/20 12/01/20 12/01/20 Range/Units 05:20 05:20 05:39 WBC Cancelled Corrected WBC Cancelled RBC Cancelled Hgb Cancelled Hct Cancelled MCV Cancelled MCH Cancelled MCHC Cancelled RDW Cancelled Plt Count Cancelled MPV Cancelled Gran % Cancelled Neut % (Auto) Cancelled Lymph % (Auto) Cancelled [place] % (Auto) Cancelled Eos % (Auto) Cancelled Baso % (Auto) Cancelled Neut # (Auto) Cancelled Lymph # (Auto) Cancelled [place] # (Auto) Cancelled Eos # (Auto) Cancelled Baso # (Auto) Cancelled Absolute Gran (aut o) Cancelled Nucleated RBC % (a uto) Cancelled Nucleated RBCs # Cancelled Sodium 137 (136-145) mmol/L Potassium 3.6 (3.5-5.1) mmol/L Chloride 105 (98-107) mmol/L Carbon Dioxide 23 (22-29) mmol/L Anion Gap 12.6 (5-19) BUN 13 (6-20) mg/dL Creatinine 0.7 (0.5-0.9) mg/dL GFR Calculation 86.2 L (90-130) mL/min Glucose 66 (65-115) mg/dL POC Glucose 73 (70-110) mg/dL Calculated Osmolal ity 282 L (285-295) mOsm/k g Calcium 7.9 L (8.5-10.5) mg/dL SARS-CoV-2 Ag (Rap id) (Negative) 12/01/20 12/01/20 12/01/20 Range/Units 05:45 06:15 06:42 WBC 8.8 Corrected WBC RBC 4.09 L Hgb 12.2 Hct 38.7 MCV 94.6 MCH 29.8 MCHC 31.5 RDW 12.7 Plt Count 160 MPV 10.3 Gran % Neut % (Auto) 70.6 Lymph % (Auto) 18.9 [place] % (Auto) 6.3 Eos % (Auto) 3.4 Baso % (Auto) 0.5 Neut # (Auto) 6.20 Lymph # (Auto) 1.7 [place] # (Auto) 0.6 Eos # (Auto) 0.3 Baso # (Auto) 0.0 Absolute Gran (aut o) Nucleated RBC % (a uto) 0 Nucleated RBCs # 0.0 Sodium (136-145) mmol/L Potassium (3.5-5.1) mmol/L Chloride (98-107) mmol/L Carbon Dioxide (22-29) mmol/L Anion Gap (5-19) BUN (6-20) mg/dL Creatinine (0.5-0.9) mg/dL GFR Calculation (90-130) mL/min Glucose (65-115) mg/dL POC Glucose 99 129 H (70-110) mg/dL Calculated Osmolal ity (285-295) mOsm/k g Calcium (8.5-10.5) mg/dL SARS-CoV-2 Ag (Rap id) (Negative) 12/01/20 12/01/20 Range/Units 07:51 08:14 WBC Corrected WBC RBC Hgb Hct MCV MCH MCHC RDW Plt Count MPV Gran % Neut % (Auto) Lymph % (Auto) [place] % (Auto) Eos % (Auto) Baso % (Auto) Neut # (Auto) Lymph # (Auto) [place] # (Auto) Eos # (Auto) Baso # (Auto) Absolute Gran (aut o) Nucleated RBC % (a uto) Nucleated RBCs # Sodium (136-145) mmol/L Potassium (3.5-5.1) mmol/L Chloride (98-107) mmol/L Carbon Dioxide (22-29) mmol/L Anion Gap (5-19) BUN (6-20) mg/dL Creatinine (0.5-0.9) mg/dL GFR Calculation (90-130) mL/min Glucose (65-115) mg/dL POC Glucose 144 H (70-110) mg/dL Calculated Osmolal ity (285-295) mOsm/k g Calcium (8.5-10.5) mg/dL SARS-CoV-2 Ag (Rap id) Negative (Negative) Discharge Plan Discharge Patient Disposition: Home Clinical Impression: Hypoglycemia, Chronic radicular lumbar pain, Narcotic overdose Condition: Stable Prescriptions: No Action metoclopramide HCl [Reglan] 10 mg tablet 10 mg PO Q6H PRN (Reason: nausea and vomiting) Qty: 30 RF: 3 calcium carbonate 600 mg calcium (1,500 mg) tablet 600 mg PO BID RF: 0 fluoxetine 40 mg capsule 40 mg PO QAM Qty: 30 RF: 1 aspirin 325 mg tablet,delayed release (DR/EC) 162.5 mg PO DAILY RF: 0 magnesium oxide 500 mg capsule 500 mg PO BID RF: 0 multivitamin Tablet 1 tab PO QAM RF: 0 ascorbate calcium (vitamin C) 500 mg tablet 500 mg PO DAILY RF: 0 ferrous sulfate [FeroSul] 325 mg (65 mg iron) tablet 650 mg PO BID RF: 0 potassium gluconate 595 mg (99 mg) tablet 99 mg PO DAILY RF: 0 (DME) Diabetic shoes with inserts See Rx Instructions .Route .MEDSUPPLY Qty: 1 RF: 0 (DME) blood sugar diagnostic Strip See Rx Instructions .ROUTE .MEDSUPPLY Qty: 10 RF: 0 cholecalciferol (vitamin D3) 25 mcg (1,000 unit) capsule 25 mcg PO DAILY RF: 0 coenzyme Q10 [Co Q-10] 200 mg capsule 200 mg PO DAILY RF: 0 vitamin B complex [Super B-50 Complex] Capsule 1 cap PO DAILY RF: 0 oxybutynin chloride 5 mg tablet 5 mg PO QID Qty: 360 RF: 1 atorvastatin 10 mg tablet See Rx Instructions .ROUTE .COMPLEX Qty: 90 RF: 2 Vascepa 1 gram capsule 2 g PO BID Qty: 360 RF: 1 Basaglar KwikPen U-100 Insulin 100 unit/mL (3 mL) insulin pen 70 unit SUBCUT DAILY Qty: 15 RF: 4 pantoprazole 40 mg tablet,delayed release (DR/EC) 40 mg PO DAILY Qty: 90 RF: 1 pregabalin [Lyrica] 200 mg capsule 200 mg PO TID Qty: 90 RF: 0 zonisamide 100 mg capsule See Rx Instructions .ROUTE .COMPLEX Qty: 90 RF: 2 risperidone [Risperdal] 0.5 mg tablet 0.5 mg PO .bedtime Qty: 30 RF: 1 phenazopyridine [Pyridium] 100 mg tablet 100 mg PO Q8H Qty: 20 RF: 0 sucralfate [Carafate] 1 gram tablet 1 g PO QID 30 Days Qty: 120 RF: 2 propranolol 40 mg tablet 40 mg PO BID Qty: 60 RF: 0 diclofenac sodium 1 % gel 2 g topical QID Qty: 100 RF: 2 nystatin 100,000 unit/gram powder 1 applic TOPICAL DAILY PRN (Reason: rash) Qty: 60 RF: 0 ibuprofen 800 mg tablet See Rx Instructions .ROUTE .COMPLEX Qty: 90 RF: 2 (DME) FreeStyle Vernell 2 Sensor Kit See Rx Instructions .ROUTE .MEDSUPPLY Qty: 2 RF: 3 (DME) FreeStyle Vernell 2 Eure Misc See Rx Instructions .ROUTE .MEDSUPPLY Qty: 1 RF: 0 insulin syringe-needle U-100 [BD Insulin Syringe Ultra-Fine] 0.5 mL 31 gauge x 5/16 syringe See Rx Instructions .ROUTE .COMPLEX Qty: 100 RF: 2 True Metrix Glucose Test Strip Strip See Rx Instructions .ROUTE .COMPLEX Qty: 100 RF: 2 ondansetron HCl [Zofran] 4 mg tablet 8 mg PO Q8H Qty: 20 RF: 0 baclofen 10 mg tablet See Rx Instructions .ROUTE .COMPLEX Qty: 90 RF: 0 niacin 500 mg tablet extended release 24 hr See Rx Instructions .ROUTE .COMPLEX Qty: 540 RF: 1 insulin aspart U-100 [Novolog U-100 Insulin aspart] 100 unit/mL solution See Rx Instructions .ROUTE .COMPLEX Qty: 10 RF: 1 meclizine 25 mg tablet See Rx Instructions .ROUTE .COMPLEX Qty: 60 RF: 0 Discharge Orders: Discharge ED (Routine); Ordered 12/01/20 Ordered By: Remigio Boles Referrals: Mora Snyder MD [Primary Care Provider] - Discharge Diet: Usual diet Discharge Activity: Increase activity as tolerated Patient Instructions: Opioid Safety Activity Restrictions/Additional Instructions: Your tested for Covid today. Recommend that you maintain self quarantine until results are back. Your low blood sugars resolved here. Recommend do not take narcotics except as specifically prescribed. And if you have further problems. Sign Out Sign Out Data: Patient Sign Out occurred on 12/01/20 at 06:26. Patient's care was discussed, and care was transferred from to Remigio Boles DO. Coding Level of Care Code ED Television Service Engineer for Chg Fwd Documented by User: Remigio Boles DO 12/01/20 09:42 HPI - General Adult General: Chief complaint: Overdose Stated complaint: OVERDOSE Time Seen by Provider: 12/01/20 04:51 [facility] ED PFSH: Medical History Anemia Chronic radicular lumbar pain Diabetes Encounter for long-term opiate analgesic use Generalized anxiety disorder Major depressive disorder, recurrent severe without psychotic features Primary fibromyalgia Type 2 diabetes mellitus, with long-term current use of insulin Surgical History Hx of adenoidectomy Hx of carpal tunnel repair (~1996) Hx of cholecystectomy (~1986) Hx of colonoscopy (~2019) Hx of endoscopy (~2019) Family History Mother Hypertension Rheumatoid arthritis Grandmother Diabetes Arthritis Stroke Hypertension Social History Second hand smoke exposure: No Alcohol intake: never Caregiver/support person: Yes Lives independently: Yes Household members: spouse Marital status: Current occupational status: disabled History of recent travel: No Current gender identity: Female Special sixto needs: No Course Vital Signs: Vital signs: Vital Signs Temperature 97.9 F 12/01/20 04:48 Pulse Rate 64 12/01/20 06:39 Respiratory Rate 15 12/01/20 06:39 Blood Pressure 101/58 12/01/20 06:39 Pulse Oximetry 95 12/01/20 06:39 MDM - General Adult Lab Data: Labs: Lab Results 12/01/20 12/01/20 12/01/20 Range/Units 05:20 05:20 05:39 WBC Cancelled Corrected WBC Cancelled RBC Cancelled Hgb Cancelled Hct Cancelled MCV Cancelled MCH Cancelled MCHC Cancelled RDW Cancelled Plt Count Cancelled MPV Cancelled Gran % Cancelled Neut % (Auto) Cancelled Lymph % (Auto) Cancelled [place] % (Auto) Cancelled Eos % (Auto) Cancelled Baso % (Auto) Cancelled Neut # (Auto) Cancelled Lymph # (Auto) Cancelled [place] # (Auto) Cancelled Eos # (Auto) Cancelled Baso # (Auto) Cancelled Absolute Gran (aut o) Cancelled Nucleated RBC % (a uto) Cancelled Nucleated RBCs # Cancelled Sodium 137 (136-145) mmol/L Potassium 3.6 (3.5-5.1) mmol/L Chloride 105 (98-107) mmol/L Carbon Dioxide 23 (22-29) mmol/L Anion Gap 12.6 (5-19) BUN 13 (6-20) mg/dL Creatinine 0.7 (0.5-0.9) mg/dL GFR Calculation 86.2 L (90-130) mL/min Glucose 66 (65-115) mg/dL POC Glucose 73 (70-110) mg/dL Calculated Osmolal ity 282 L (285-295) mOsm/k g Calcium 7.9 L (8.5-10.5) mg/dL SARS-CoV-2 Ag (Rap id) (Negative) 12/01/20 12/01/20 12/01/20 Range/Units 05:45 06:15 06:42 WBC 8.8 Corrected WBC RBC 4.09 L Hgb 12.2 Hct 38.7 MCV 94.6 MCH 29.8 MCHC 31.5 RDW 12.7 Plt Count 160 MPV 10.3 Gran % Neut % (Auto) 70.6 Lymph % (Auto) 18.9 [place] % (Auto) 6.3 Eos % (Auto) 3.4 Baso % (Auto) 0.5 Neut # (Auto) 6.20 Lymph # (Auto) 1.7 [place] # (Auto) 0.6 Eos # (Auto) 0.3 Baso # (Auto) 0.0 Absolute Gran (aut o) Nucleated RBC % (a uto) 0 Nucleated RBCs # 0.0 Sodium (136-145) mmol/L Potassium (3.5-5.1) mmol/L Chloride (98-107) mmol/L Carbon Dioxide (22-29) mmol/L Anion Gap (5-19) BUN (6-20) mg/dL Creatinine (0.5-0.9) mg/dL GFR Calculation (90-130) mL/min Glucose (65-115) mg/dL POC Glucose 99 129 H (70-110) mg/dL Calculated Osmolal ity (285-295) mOsm/k g Calcium (8.5-10.5) mg/dL SARS-CoV-2 Ag (Rap id) (Negative) 12/01/20 12/01/20 Range/Units 07:51 08:14 WBC Corrected WBC RBC Hgb Hct MCV MCH MCHC RDW Plt Count MPV Gran % Neut % (Auto) Lymph % (Auto) [place] % (Auto) Eos % (Auto) Baso % (Auto) Neut # (Auto) Lymph # (Auto) [place] # (Auto) Eos # (Auto) Baso # (Auto) Absolute Gran (aut o) Nucleated RBC % (a uto) Nucleated RBCs # Sodium (136-145) mmol/L Potassium (3.5-5.1) mmol/L Chloride (98-107) mmol/L Carbon Dioxide (22-29) mmol/L Anion Gap (5-19) BUN (6-20) mg/dL Creatinine (0.5-0.9) mg/dL GFR Calculation (90-130) mL/min Glucose (65-115) mg/dL POC Glucose 144 H (70-110) mg/dL Calculated Osmolal ity (285-295) mOsm/k g Calcium (8.5-10.5) mg/dL SARS-CoV-2 Ag (Rap id) Negative (Negative) Discharge Plan Discharge Patient Disposition: Home Clinical Impression: Hypoglycemia, Chronic radicular lumbar pain, Narcotic overdose Condition: Stable Prescriptions: No Action metoclopramide HCl [Reglan] 10 mg tablet 10 mg PO Q6H PRN (Reason: nausea and vomiting) Qty: 30 RF: 3 calcium carbonate 600 mg calcium (1,500 mg) tablet 600 mg PO BID RF: 0 fluoxetine 40 mg capsule 40 mg PO QAM Qty: 30 RF: 1 aspirin 325 mg tablet,delayed release (DR/EC) 162.5 mg PO DAILY RF: 0 magnesium oxide 500 mg capsule 500 mg PO BID RF: 0 multivitamin Tablet 1 tab PO QAM RF: 0 ascorbate calcium (vitamin C) 500 mg tablet 500 mg PO DAILY RF: 0 ferrous sulfate [FeroSul] 325 mg (65 mg iron) tablet 650 mg PO BID RF: 0 potassium gluconate 595 mg (99 mg) tablet 99 mg PO DAILY RF: 0 (DME) Diabetic shoes with inserts See Rx Instructions .Route .MEDSUPPLY Qty: 1 RF: 0 (DME) blood sugar diagnostic Strip See Rx Instructions .ROUTE .MEDSUPPLY Qty: 10 RF: 0 cholecalciferol (vitamin D3) 25 mcg (1,000 unit) capsule 25 mcg PO DAILY RF: 0 coenzyme Q10 [Co Q-10] 200 mg capsule 200 mg PO DAILY RF: 0 vitamin B complex [Super B-50 Complex] Capsule 1 cap PO DAILY RF: 0 oxybutynin chloride 5 mg tablet 5 mg PO QID Qty: 360 RF: 1 atorvastatin 10 mg tablet See Rx Instructions .ROUTE .COMPLEX Qty: 90 RF: 2 Vascepa 1 gram capsule 2 g PO BID Qty: 360 RF: 1 Basaglar KwikPen U-100 Insulin 100 unit/mL (3 mL) insulin pen 70 unit SUBCUT DAILY Qty: 15 RF: 4 pantoprazole 40 mg tablet,delayed release (DR/EC) 40 mg PO DAILY Qty: 90 RF: 1 pregabalin [Lyrica] 200 mg capsule 200 mg PO TID Qty: 90 RF: 0 zonisamide 100 mg capsule See Rx Instructions .ROUTE .COMPLEX Qty: 90 RF: 2 risperidone [Risperdal] 0.5 mg tablet 0.5 mg PO .bedtime Qty: 30 RF: 1 phenazopyridine [Pyridium] 100 mg tablet 100 mg PO Q8H Qty: 20 RF: 0 sucralfate [Carafate] 1 gram tablet 1 g PO QID 30 Days Qty: 120 RF: 2 propranolol 40 mg tablet 40 mg PO BID Qty: 60 RF: 0 diclofenac sodium 1 % gel 2 g topical QID Qty: 100 RF: 2 nystatin 100,000 unit/gram powder 1 applic TOPICAL DAILY PRN (Reason: rash) Qty: 60 RF: 0 ibuprofen 800 mg tablet See Rx Instructions .ROUTE .COMPLEX Qty: 90 RF: 2 (DME) FreeStyle Vernell 2 Sensor Kit See Rx Instructions .ROUTE .MEDSUPPLY Qty: 2 RF: 3 (DME) FreeStyle Vernell 2 Eure Misc See Rx Instructions .ROUTE .MEDSUPPLY Qty: 1 RF: 0 insulin syringe-needle U-100 [BD Insulin Syringe Ultra-Fine] 0.5 mL 31 gauge x 5/16 syringe See Rx Instructions .ROUTE .COMPLEX Qty: 100 RF: 2 True Metrix Glucose Test Strip Strip See Rx Instructions .ROUTE .COMPLEX Qty: 100 RF: 2 ondansetron HCl [Zofran] 4 mg tablet 8 mg PO Q8H Qty: 20 RF: 0 baclofen 10 mg tablet See Rx Instructions .ROUTE .COMPLEX Qty: 90 RF: 0 niacin 500 mg tablet extended release 24 hr See Rx Instructions .ROUTE .COMPLEX Qty: 540 RF: 1 insulin aspart U-100 [Novolog U-100 Insulin aspart] 100 unit/mL solution See Rx Instructions .ROUTE .COMPLEX Qty: 10 RF: 1 meclizine 25 mg tablet See Rx Instructions .ROUTE .COMPLEX Qty: 60 RF: 0 Discharge Orders: Discharge ED (Routine); Ordered 12/01/20 Ordered By: Remigio Boles Referrals: Mora Snyder MD [Primary Care Provider] - Discharge Diet: Usual diet Discharge Activity: Increase activity as tolerated Patient Instructions: Opioid Safety Activity Restrictions/Additional Instructions: Your tested for Covid today. Recommend that you maintain self quarantine until results are back. Your low blood sugars resolved here. Recommend do not take narcotics except as specifically prescribed. And if you have further problems. Sign Out Sign Out Data: Patient Sign Out occurred on 08/12/21 at 06:26. Patient's care was discussed, and care was transferred from to Remigio Boles DO. Coding Level of Care Code ED Television Service Engineer for Mayur Valdez
[2020-12-01] MEDS: dextrose 10% 1,000 ML 150 ML IV (05:48)
[2020-12-01 05:55] LABS: Basophils % 0.5 %; Eosinophils # 0.3 10^3/uL (0.0-0.8); Eosinophils % 3.4 %; Hematocrit 38.7 % (37.0-47.0); Hemoglobin 12.2 g/dL (11.5-15.3); Lymphocytes # 1.7 10^3/uL (0.8-4.8); Lymphocytes % 18.9 %; Mean Corpuscular HGB Conc 31.5 g/dL (30.0-36.0); Mean Corpuscular Hemoglobin 29.8 pg (28.0-34.0); Mean Corpuscular Volume 94.6 fL (81-99); Mean Platelet Volume 10.3 fL (7.4-10.4); Monocytes # 0.6 10^3/uL (0.2-0.9); Monocytes % 6.3 %; Neutrophils % 70.6 %; Nucleated Red Blood Cells % 0 %; Platelet Count 160 10^3/cmm (130-400); Red Blood Count 4.09 10^6/uL (4.1-5.3); Red Cell Distribution Width 12.7 % (12.1-15.1); White Blood Count 8.8 10^3/uL (4.0-10.0)
[2020-12-01 06:03] LABS: Anion Gap 12.6 (5-19); Blood Urea Nitrogen 13 mg/dL (6-20); Calcium 7.9 mg/dL (8.5-10.5); Carbon Dioxide 23 mmol/L (22-29); Chloride 105 mmol/L (98-107); Glomerular Filtration Rate 86.2 mL/min (90-130); Glucose 66 mg/dL (65-115); Osmolality Calculated 282 mOsm/kg (285-295); Potassium 3.6 mmol/L (3.5-5.1); Sodium 137 mmol/L (136-145)
[2020-12-01 06:15] VITALS: BP 78/43; PULSE 60; RESP 13; O2SAT 93
[2020-12-01 06:18] LABS: Glucose Point of Care 99 mg/dL (70-110)
[2020-12-01] MEDS: sodium chloride 0.9% 1,000 ML 999 ML IV (06:21)
[2020-12-01] MEDS: naloxone 0.4 mg/ml SDV 0.8 MG IVP (06:24)
[2020-12-01 06:39] VITALS: BP 101/58; PULSE 64; RESP 15; O2SAT 95
[2020-12-01 06:46] LABS: Glucose Point of Care 129 mg/dL (70-110)
--- NOTE | 2020-12-01 06:48 | XR_ITS ---
WS: [id number] Portable AP upright chest, 12/01/2020 Clinical Data: dyspnea/cough Comparison: Portable chest, 01/24/2017. Findings: There may be minimal bilateral pulmonary opacities in the lower lobes. The heart is normal. No nodules, masses or effusions are seen. Monitor leads on the chest wall. XR/XR chest 1V portable [id number] Impression: Possible minimal bilateral pulmonary opacities which could indicate pneumonia a nd recommend repeat chest x-ray in one to 2 days.
--- NOTE | 2020-12-01 06:48 | CT_ITS ---
WS: [id number] CT HEAD TECHNIQUE: Noncontrast CT of the head obtained from the skullbase to the vertex. CLINICAL INFORMATION: AMS COMPARISON: CT 2016 DLP: 906.[address] scans at [facility] use at least one of these dose optimization techniques: automat ed exposure control; mA and/or kV adjustment per patient size (includes targeted exams where dose is matched to clinical indication); or iterative reconstruction. FINDINGS: No evidence of intracranial hemorrhage or mass effect. Ventricular system and basal cisterns are mcgee nt. Mild small vessel changes with mild parenchymal volume loss. No extra-axial fluid collections. No evidence of mass or mass effect. Normal mercer-white differentiation. Mild mucosal thickening paranasal sinuses. Mastoid air cells are well aerated. Normal visualized soft tissues. CT/CT head wo con* [id number] IMPRESSION: 1. No evidence of intracranial hemorrhage or mass effect. 2. Mild small vessel changes. Mild parenchymal volume loss. 3. No acute intracranial findings.
[2020-12-01 08:19] LABS: Glucose Point of Care 144 mg/dL (70-110)
[2020-12-01 09:24] LABS: SARS Covid-2 Antigen Negative (Negative)
== END 2020-12-01 10:11 | disposition home or self-care (01) ==
PROVIDERS: Emergency Medicine; Emergency Provider Family Medicine; PCP Family Medicine
DX: T40.601A Poisoning by unspecified narcotics, accidental (unintentional), initial encounter (principal); E11.649 Type 2 diabetes mellitus with hypoglycemia without coma; M54.16 Radiculopathy, lumbar region; Z79.4 Long term (current) use of insulin
CPT/HCPCS: 36415; 36416; 70450; 71045; 80048; 82962; 85025; 87040; 87426; 87635; 93005; 96361; 96374; 96375; 99284; J2310; J7030

== ENCOUNTER → 2020-12-02 15:19 | Outpatient (BNVA) | payer MEDICARE, SELFPAY | PROVIDERS: PCP Family Medicine; Visit Provider Nurse Practitioner Family | DX: E16.2 Hypoglycemia, unspecified (principal); J18.9 Pneumonia, unspecified organism | CPT/HCPCS: 36416; 82962 ==

== ENCOUNTER 2020-12-30 07:33 | Emergency (ER) | payer MEDICARE, SELFPAY ==
[2020-12-30 07:46] VITALS: BP 145/78; PULSE 57; RESP 18; TEMP 36.6; O2SAT 97; BMI 51.6
--- NOTE | 2020-12-30 07:53 | W.ED.ALLEREA ---
HPI - Allergic Reaction General: Chief complaint: General Medical Stated complaint: Swollen face, tongue Time Seen by Provider: 12/30/20 07:48 History of Present Illness: HPI narrative: 55-year-old female presents to the ER today for complaints of tongue and face swelling that started about 3:30 AM this morning. Patient reports she took 2 Lasix tabs last night that were out of date however she takes Lasix regularly and never has any issues. Patient reports when she woke up at 330 this morning she felt like her tongue was swelling and her jaws were clenched. She denies any shortness of breath or difficulty breathing at this point. She did take a Benadryl 25 mg tab at 630 this morning with minimal relief. She has a history of anaphylactic reactions to several medications, but this does feel different than in the past when she had anaphylactic reactions. She does not have an EpiPen at home that is in date. Patient denies fever, chills, headache, congestion, throat pain, chest pain, shortness of breath, nausea, vomiting, diarrhea, constipation, any change in bowel or bladder habits. MD complaint: allergic reaction and facial swelling Onset (ago): hour(s) (5) Exposure: medication (possibly out of date lasix) Associated symptoms: Reports facial swelling (describes more as jaws clenching) and tongue swelling; Deny abdominal pain, nausea or vomiting Severity: mild Treatment prior to arrival: benadryl (25 mg) Previous Allergic Reaction History: anaphylaxis Review of Systems General: Reports: 10 or more systems reviewed and unremarkable except in HPI and below Const: Denies: fever(s), chills or diaphoresis ENMT: Reports: swelling of lips/tongue and dry mouth (chronic issue); Denies: throat pain, odynophagia, mouth pain or nasal congestion Card: Denies: chest pain Resp: Denies: dyspnea GI: Denies: abdominal pain, nausea or vomiting Skin/Breast: Denies: rash Neuro: Denies: headache(s) All/Imm: Reports: tongue swelling and facial swelling (describes more as jaws clenching) [facility] ED PFSH: Medical History Anemia Chronic radicular lumbar pain Diabetes Encounter for long-term opiate analgesic use Generalized anxiety disorder Major depressive disorder, recurrent severe without psychotic features Pneumonia Primary fibromyalgia Type 2 diabetes mellitus, with long-term current use of insulin Surgical History Hx of adenoidectomy Hx of carpal tunnel repair (~1996) Hx of cholecystectomy (~1986) Hx of colonoscopy (~2019) Hx of endoscopy (~2019) Family History Mother Hypertension Rheumatoid arthritis Grandmother Diabetes Arthritis Stroke Hypertension Social History Second hand smoke exposure: No Alcohol intake: never Caregiver/support person: Yes Lives independently: Yes Household members: spouse Marital status: Current occupational status: disabled History of recent travel: No Current gender identity: Female Special sixto needs: No Physical Exam Const: COMMON NORMALS: no acute distress, average body habitus (obese), patient oriented x3 and no limitations GENERAL APPEARANCE: cooperative; not in distress and not ill appearing NUTRITIONAL APPEARANCE: obese ORIENTATION/CONSCIOUSNESS: Yes oriented to person, Yes oriented to place and Yes oriented to time HENMT: COMMON NORMALS: normocephalic, TM's normal bilaterally and Normal nasal mucous membranes and turbinates present; oral mucous membranes not moist (dry mucous membranes, chronic issue) HEAD & SCALP: normocephalic NOSE: Normal nasal mucous membranes and turbinates present TYMPANIC MEMBRANE: TM's normal bilaterally MOUTH: lip normal and tongue normal (no obvious swelling noted ) THROAT: posterior oropharynx normal Lymph: LYMPHATIC: no lymphadenopathy noted Resp: COMMON NORMALS: normal respiratory effort, No retractions and clear to auscultation bilaterally EFFORT & INSPECTION: Yes able to speak in complete sentences AUSCULTATION: clear to auscultation bilaterally, no rales, no rhonchi and no wheezes Cardio: COMMON NORMALS: regular rate, regular rhythm and No murmurs present (Cardio) RATE: regular rate RHYTHM: regular rhythm GI: COMMON NORMALS: Normal to inspection, nondistended, normoactive bowel sounds present and Soft to palpation PALPATION: Yes Soft to palpation and No Tenderness to palpation present (GI) Extremity: COMMON NORMALS: normal to inspection and full ROM Neuro: COMMON NORMALS: patient oriented x3 SENSORIUM/ORIENTATION: Yes oriented to person, Yes oriented to place and Yes oriented to time Psych: APPEARANCE: Yes grossly normal Skin: COMMON NORMALS: no rashes or lesions noted GENERAL SKIN EXAM: no rashes or lesions noted Course ED course: Patient appears stable while in ER with no obvious signs of tongue swelling or facial swelling. Patient appears more anxious than anything due to previous anaphylactic reaction. Patient was given 125 mg of Solu-Medrol IM, 25 mg of Benadryl due to already having taken 25 mg this morning prior to arrival, and 10 mg of Zyrtec. Patient remained stable while in the ER and was discharged home. Recommended she not take any more medication that is , she can follow-up with her doctor next week if symptoms persist. Return to the ER with any new or worsening symptoms including shortness of breath, difficulty breathing, or worsening swelling of the tongue. Vital Signs: Vital signs: Vital Signs Temperature 97.9 F 12/30/20 07:46 Pulse Rate 57 L 12/30/20 07:46 Respiratory Rate 15 12/30/20 08:05 Blood Pressure 145/78 12/30/20 07:46 Pulse Oximetry 97 12/30/20 07:46 MDM - Allergic Reaction MDM Narrative: Medical decision making narrative: Patient appears stable while in ER with no obvious signs of tongue swelling or facial swelling. Patient appears more anxious than anything due to previous anaphylactic reaction. Patient was given 125 mg of Solu-Medrol IM, 25 mg of Benadryl due to already having taken 25 mg this morning prior to arrival, and 10 mg of Zyrtec. I did discuss with patient that the Solu-Medrol would likely make her blood sugar go up however it should return back to normal within a few days. Patient remained stable while in the ER and was discharged home. Recommended she not take any more medication that is , she can follow-up with her doctor next week if symptoms persist. Return to the ER with any new or worsening symptoms including shortness of breath, difficulty breathing, or worsening swelling of the tongue. Critical Care Time Critical Care Time: Critical Care Time: No Discharge Plan Discharge Patient Disposition: Home Clinical Impression: Allergic reaction Qualifiers: Encounter type: initial encounter Qualified Code(s): T78.40XA - Allergy, unspecified, initial encounter Condition: Stable Prescriptions: No Action metoclopramide HCl [Reglan] 10 mg tablet 10 mg PO Q6H PRN (Reason: nausea and vomiting) Qty: 30 RF: 3 calcium carbonate 600 mg calcium (1,500 mg) tablet 600 mg PO BID RF: 0 fluoxetine 40 mg capsule 40 mg PO QAM Qty: 30 RF: 1 doxycycline hyclate 100 mg capsule 100 mg PO BID 10 Days Qty: 20 RF: 0 dexamethasone 6 mg tablet 6 mg PO DAILY Qty: 7 RF: 0 aspirin 325 mg tablet,delayed release (DR/EC) 162.5 mg PO DAILY RF: 0 magnesium oxide 500 mg capsule 500 mg PO BID RF: 0 multivitamin Tablet 1 tab PO QAM RF: 0 ascorbate calcium (vitamin C) 500 mg tablet 500 mg PO DAILY RF: 0 ferrous sulfate [FeroSul] 325 mg (65 mg iron) tablet 650 mg PO BID RF: 0 potassium gluconate 595 mg (99 mg) tablet 99 mg PO DAILY RF: 0 (DME) Diabetic shoes with inserts See Rx Instructions .Route .MEDSUPPLY Qty: 1 RF: 0 (DME) blood sugar diagnostic Strip See Rx Instructions .ROUTE .MEDSUPPLY Qty: 10 RF: 0 cholecalciferol (vitamin D3) 25 mcg (1,000 unit) capsule 25 mcg PO DAILY RF: 0 coenzyme Q10 [Co Q-10] 200 mg capsule 200 mg PO DAILY RF: 0 vitamin B complex [Super B-50 Complex] Capsule 1 cap PO DAILY RF: 0 oxybutynin chloride 5 mg tablet 5 mg PO QID Qty: 360 RF: 1 atorvastatin 10 mg tablet See Rx Instructions .ROUTE .COMPLEX Qty: 90 RF: 2 Vascepa 1 gram capsule 2 g PO BID Qty: 360 RF: 1 pantoprazole 40 mg tablet,delayed release (DR/EC) 40 mg PO DAILY Qty: 90 RF: 1 pregabalin [Lyrica] 200 mg capsule 200 mg PO TID Qty: 90 RF: 0 risperidone [Risperdal] 0.5 mg tablet 0.5 mg PO .bedtime Qty: 30 RF: 1 phenazopyridine [Pyridium] 100 mg tablet 100 mg PO Q8H Qty: 20 RF: 0 sucralfate [Carafate] 1 gram tablet 1 g PO QID 30 Days Qty: 120 RF: 2 diclofenac sodium 1 % gel 2 g topical QID Qty: 100 RF: 2 nystatin 100,000 unit/gram powder 1 applic TOPICAL DAILY PRN (Reason: rash) Qty: 60 RF: 0 ibuprofen 800 mg tablet See Rx Instructions .ROUTE .COMPLEX Qty: 90 RF: 2 (DME) FreeStyle [place] 2 Sensor Kit See Rx Instructions .ROUTE .MEDSUPPLY Qty: 2 RF: 3 (DME) FreeStyle [place] 2 [place] Misc See Rx Instructions .ROUTE .MEDSUPPLY Qty: 1 RF: 0 insulin syringe-needle U-100 [BD Insulin Syringe Ultra-Fine] 0.5 mL 31 gauge x 5/16 syringe See Rx Instructions .ROUTE .COMPLEX Qty: 100 RF: 2 True Metrix Glucose Test Strip Strip See Rx Instructions .ROUTE .COMPLEX Qty: 100 RF: 2 ondansetron HCl [Zofran] 4 mg tablet 8 mg PO Q8H Qty: 20 RF: 0 niacin 500 mg tablet extended release 24 hr See Rx Instructions .ROUTE .COMPLEX Qty: 540 RF: 1 insulin aspart U-100 [Novolog U-100 Insulin aspart] 100 unit/mL solution See Rx Instructions .ROUTE .COMPLEX Qty: 10 RF: 1 baclofen 10 mg tablet See Rx Instructions .ROUTE .COMPLEX Qty: 90 RF: 0 propranolol 40 mg tablet See Rx Instructions .ROUTE .COMPLEX Qty: 60 RF: 0 zonisamide 100 mg capsule See Rx Instructions .ROUTE .COMPLEX Qty: 90 RF: 0 meclizine 25 mg tablet See Rx Instructions .ROUTE .COMPLEX Qty: 60 RF: 0 Basaglar KwikPen U-100 Insulin 100 unit/mL (3 mL) insulin pen See Rx Instructions .ROUTE .COMPLEX Qty: 15 RF: 4 Discharge Orders: Discharge ED (Routine); Ordered 12/30/20 Ordered By: Linh Cooney Referrals: Mora Snyder MD [Primary Care Provider] - Discharge Diet: Diabetic Discharge Activity: Resume usual activity Patient Instructions: Opioid Safety Activity Restrictions/Additional Instructions: Continue Benadryl every 4-6 hours as needed for swelling. Max of 50 mg every 4-6 hours. Recommend Zyrtec 10 mg once daily until symptoms have improved. Contact PCP next week for follow-up. Return to the ER with any new or worsening symptoms including difficulty breathing, shortness of breath, or worsening tongue swelling. Coding Level of Care Code ED Block [employer]ader for Mayur Fwd Exam Comprehensive
[2020-12-30 08:05] VITALS: RESP 15
--- NOTE | 2020-12-30 08:26 | W.ED.GENADLT ---
HPI - General Adult General: Chief complaint: General Medical Stated complaint: Swollen face, tongue Time Seen by Provider: 12/30/20 07:48 PFSH ED PFSH: Medical History Anemia Chronic radicular lumbar pain Diabetes Encounter for long-term opiate analgesic use Generalized anxiety disorder Major depressive disorder, recurrent severe without psychotic features Pneumonia Primary fibromyalgia Type 2 diabetes mellitus, with long-term current use of insulin Surgical History Hx of adenoidectomy Hx of carpal tunnel repair (~1996) Hx of cholecystectomy (~1986) Hx of colonoscopy (~2019) Hx of endoscopy (~2019) Family History Mother Hypertension Rheumatoid arthritis Grandmother Diabetes Arthritis Stroke Hypertension Social History Second hand smoke exposure: No Alcohol intake: never Caregiver/support person: Yes Lives independently: Yes Household members: spouse Marital status: Current occupational status: disabled History of recent travel: No Current gender identity: Female Special sixto needs: No Female Reproductive History: Date of last menstrual period: 12/26/20 Course Vital Signs: Vital signs: Vital Signs Temperature 97.9 F 12/30/20 07:46 Pulse Rate 62 12/30/20 08:56 Respiratory Rate 18 12/30/20 08:56 Blood Pressure 121/66 12/30/20 08:56 Pulse Oximetry 94 12/30/20 08:56 MDM - General Adult MDM Narrative: Medical decision making narrative: This is a duplicate note, see completed note on same day. Discharge Plan Discharge Patient Disposition: Home Clinical Impression: Allergic reaction Condition: Stable Prescriptions: No Action metoclopramide HCl [Reglan] 10 mg tablet 10 mg PO Q6H PRN (Reason: nausea and vomiting) Qty: 30 RF: 3 calcium carbonate 600 mg calcium (1,500 mg) tablet 600 mg PO BID RF: 0 doxycycline hyclate 100 mg capsule 100 mg PO BID 10 Days Qty: 20 RF: 0 dexamethasone 6 mg tablet 6 mg PO DAILY Qty: 7 RF: 0 aspirin 325 mg tablet,delayed release (DR/EC) 162.5 mg PO DAILY RF: 0 magnesium oxide 500 mg capsule 500 mg PO BID RF: 0 multivitamin Tablet 1 tab PO QAM RF: 0 ascorbate calcium (vitamin C) 500 mg tablet 500 mg PO DAILY RF: 0 ferrous sulfate [FeroSul] 325 mg (65 mg iron) tablet 650 mg PO BID RF: 0 potassium gluconate 595 mg (99 mg) tablet 99 mg PO DAILY RF: 0 (DME) Diabetic shoes with inserts See Rx Instructions .Route .MEDSUPPLY Qty: 1 RF: 0 (DME) blood sugar diagnostic Strip See Rx Instructions .ROUTE .MEDSUPPLY Qty: 10 RF: 0 cholecalciferol (vitamin D3) 25 mcg (1,000 unit) capsule 25 mcg PO DAILY RF: 0 coenzyme Q10 [Co Q-10] 200 mg capsule 200 mg PO DAILY RF: 0 vitamin B complex [Super B-50 Complex] Capsule 1 cap PO DAILY RF: 0 oxybutynin chloride 5 mg tablet 5 mg PO QID Qty: 360 RF: 1 atorvastatin 10 mg tablet See Rx Instructions .ROUTE .COMPLEX Qty: 90 RF: 2 Vascepa 1 gram capsule 2 g PO BID Qty: 360 RF: 1 pantoprazole 40 mg tablet,delayed release (DR/EC) 40 mg PO DAILY Qty: 90 RF: 1 pregabalin [Lyrica] 200 mg capsule 200 mg PO TID Qty: 90 RF: 0 phenazopyridine [Pyridium] 100 mg tablet 100 mg PO Q8H Qty: 20 RF: 0 sucralfate [Carafate] 1 gram tablet 1 g PO QID 30 Days Qty: 120 RF: 2 diclofenac sodium 1 % gel 2 g topical QID Qty: 100 RF: 2 fluoxetine 40 mg capsule 40 mg PO QAM Qty: 30 RF: 6 nystatin 100,000 unit/gram powder 1 applic TOPICAL DAILY PRN (Reason: rash) Qty: 60 RF: 0 ibuprofen 800 mg tablet See Rx Instructions .ROUTE .COMPLEX Qty: 90 RF: 2 (DME) FreeStyle [place] 2 Sensor Kit See Rx Instructions .ROUTE .MEDSUPPLY Qty: 2 RF: 3 (DME) FreeStyle [place] 2 [place] Misc See Rx Instructions .ROUTE .MEDSUPPLY Qty: 1 RF: 0 insulin syringe-needle U-100 [BD Insulin Syringe Ultra-Fine] 0.5 mL 31 gauge x 5/16 syringe See Rx Instructions .ROUTE .COMPLEX Qty: 100 RF: 2 True Metrix Glucose Test Strip Strip See Rx Instructions .ROUTE .COMPLEX Qty: 100 RF: 2 ondansetron HCl [Zofran] 4 mg tablet 8 mg PO Q8H Qty: 20 RF: 0 niacin 500 mg tablet extended release 24 hr See Rx Instructions .ROUTE .COMPLEX Qty: 540 RF: 1 insulin aspart U-100 [Novolog U-100 Insulin aspart] 100 unit/mL solution See Rx Instructions .ROUTE .COMPLEX Qty: 10 RF: 1 baclofen 10 mg tablet See Rx Instructions .ROUTE .COMPLEX Qty: 90 RF: 0 propranolol 40 mg tablet See Rx Instructions .ROUTE .COMPLEX Qty: 60 RF: 0 zonisamide 100 mg capsule See Rx Instructions .ROUTE .COMPLEX Qty: 90 RF: 0 Basaglar KwikPen U-100 Insulin 100 unit/mL (3 mL) insulin pen See Rx Instructions .ROUTE .COMPLEX Qty: 15 RF: 4 meclizine 25 mg tablet See Rx Instructions .ROUTE .COMPLEX Qty: 30 RF: 0 Discharge Orders: Discharge ED (Routine); Ordered 12/30/20 Ordered By: Linh Cooney Referrals: Mora Snyder MD [Primary Care Provider] - Discharge Diet: Diabetic Discharge Activity: Resume usual activity Patient Instructions: Opioid Safety Activity Restrictions/Additional Instructions: Continue Benadryl every 4-6 hours as needed for swelling. Max of 50 mg every 4-6 hours. Recommend Zyrtec 10 mg once daily until symptoms have improved. Contact PCP next week for follow-up. Return to the ER with any new or worsening symptoms including difficulty breathing, shortness of breath, or worsening tongue swelling. Coding Level of Care Code ED [place] for Mayur Valdez
[2020-12-30] MEDS: cetirizine 10 mg Tablet PO (08:32)
[2020-12-30] MEDS: diphenhydrAMINE 50 mg/mL SDV 1mL 25 MG IM (08:33)
[2020-12-30 08:56] VITALS: BP 121/66; PULSE 62; RESP 18; O2SAT 94
== END 2020-12-30 08:55 | disposition home or self-care (01) ==
PROVIDERS: Emergency Provider Physician Assistant; PCP Family Medicine
DX: T78.40XA Allergy, unspecified, initial encounter (principal); Z79.82 Long term (current) use of aspirin; Z79.4 Long term (current) use of insulin; E11.9 Type 2 diabetes mellitus without complications
CPT/HCPCS: 96372; 99283; J1200; J2930

== ENCOUNTER → 2021-01-23 07:32 | Outpatient (BNVA) | payer MEDICARE, SELFPAY | PROVIDERS: PCP Family Medicine; Visit Provider Nurse Practitioner Psychiatric/Mental Health | DX: F33.2 Major depressive disorder, recurrent severe without psychotic features (principal); F41.1 Generalized anxiety disorder | CPT/HCPCS: 99214 ==

== ENCOUNTER 2021-02-15 08:47 | Outpatient (CLI) | payer MEDICARE, SELFPAY ==
--- NOTE | 2021-02-15 08:45 | US_ITS ---
WS: [id number] RIGHT UPPER QUADRANT ULTRASOUND HISTORY: R74.8 - Abnormal levels of other serum enzymes COMPARISON: CT 06/19/2019 Liver: 16.7 cm in length. Liver is normal size. No mass identified. Limited evaluation due to body mccann bitus. No bile duct dilatation. Gallbladder: Status post cholecystectomy. CBD: 0.4 cm Pancreas: Completely obscured by bowel gas. Right kidney: 11.1 cm in length. No hydronephrosis. Small cortical cysts. These are difficult to iden tified due to body habitus. Cyst have been previously described on CT. Aorta and IVC: Poorly visualized. No ascites. Hyperechoic mass between the superior RIGHT kidney and the liver measures 3.2 x 3.5 x 3.1 cm. Mass co rresponds to an adrenal mass as seen on a prior CT containing fat. US/US liver [id number] IMPRESSION: 1. Quality of this examination is compromised by body habitus. 2. Prior cholecystectomy. No bile duct dilatation. 3. Poorly visualized pancreas. 4. 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 Previously descr ibed and identified on a CT examination.
== END 2021-02-15 08:48 | disposition home or self-care (01) ==
LOC: RAD 08:56
PROVIDERS: Visit Provider Family Medicine
DX: R74.8 Abnormal levels of other serum enzymes (principal); Z90.49 Acquired absence of other specified parts of digestive tract; D17.79 Benign lipomatous neoplasm of other sites
CPT/HCPCS: 76705

== ENCOUNTER → 2021-04-18 07:23 | Outpatient (BNVA) | payer MEDICARE, SELFPAY | PROVIDERS: Visit Provider Nurse Practitioner Psychiatric/Mental Health | DX: F33.2 Major depressive disorder, recurrent severe without psychotic features (principal); F41.1 Generalized anxiety disorder | CPT/HCPCS: 99214 ==

== ENCOUNTER → 2021-09-08 07:10 | Outpatient (BNVA) | payer MEDICARE, SELFPAY | PROVIDERS: Visit Provider Nurse Practitioner Psychiatric/Mental Health | DX: F33.2 Major depressive disorder, recurrent severe without psychotic features (principal); F41.1 Generalized anxiety disorder | CPT/HCPCS: 99214 ==

== ENCOUNTER 2022-12-19 06:00 | Outpatient (RCR) | payer MEDICARE, SELFPAY | END 2022-12-20 23:59 | disposition home or self-care (01) | LOC: TPT 06:00 | PROVIDERS: Visit Provider Orthopaedic Surgery | DX: M19.011 Primary osteoarthritis, right shoulder (principal) | CPT/HCPCS: 97163 ==

== ENCOUNTER 2022-12-21 06:00 | Outpatient (RCR) | payer MEDICARE, SELFPAY | END 2023-01-19 23:59 | disposition home or self-care (01) | LOC: TPT 06:00 | PROVIDERS: Visit Provider Orthopaedic Surgery | DX: M19.011 Primary osteoarthritis, right shoulder (principal) | CPT/HCPCS: 97110 ==